=== PATIENT | male | born 1950 | race Hispanic/Latino ===

== ENCOUNTER 2017-04-05 17:27 | Inpatient (IN) | payer OTHER, MEDICARE ==
[2017-04-05 18:36] LABS: VENOUS BLOOD GAS BASE EXCESS 3.2 mmol/L (0.0-2.0); VENOUS BLOOD GAS PCO2 42 mmHg (40-60); VENOUS BLOOD GAS PO2 26 mm/Hg (30-55); VENOUS BLOOD PH 7.43 (7.32-7.43)
[2017-04-05 18:43] LABS: BASO # 0.1 K/uL (0.0-0.2); BASO % 0.6 % (0.0-2.0); EOS # 0.2 K/uL (0.0-0.7); EOS % 1.1 % (0.0-4.0); LYMPH # 1.9 K/uL (1.0-4.3); LYMPH % 9.7 % (20.0-40.0); MEAN CELL VOLUME 85.3 fl (80.0-94.0); MEAN CORPUSCULAR HEMOGLOBIN 27.1 pg (27.0-31.0); MEAN CORPUSCULAR HGB CONC 31.8 g/dL (33.0-37.0); MEAN PLATELET VOLUME 8.6 fl (7.2-11.7); MONO # 1.3 K/uL (0.0-0.8); MONO % 6.5 % (0.0-10.0); NEUT # 15.7 K/uL (1.8-7.0); NEUT % 82.1 % (50.0-75.0); NRBC % 0.1 % (0.0-0.0); PLATELET COUNT 319 K/uL (130-400); RBC 4.78 Mil/uL (4.40-5.90); RED CELL DISTRIBUTION WIDTH 14.9 % (11.5-14.5); WHITE BLOOD COUNT 19.2 K/uL (4.8-10.8)
[2017-04-05 18:48] LABS: ALB/GLOB RATIO 1.1 (1.0-2.1); ALBUMIN 4.2 g/dL (3.5-5.0); ALT/SGPT 74 U/L (21-72); AST/SGOT 85 U/L (17-59); BLOOD UREA NITROGEN 14 mg/dl (9-20); CALCIUM 9.5 mg/dL (8.4-10.2); GFR AFRICAN-AMERICAN > 60; GFR NON-AFRICAN AMERICAN > 60; LIPASE 86 U/L (23-300); MAGNESIUM 1.9 MG/DL (1.6-2.3)
--- NOTE | 2017-04-05 18:51 | ED PDOC ---
HPI: Male Pain Time Seen by Provider: 04/05/17 17:56 Chief Complaint (Nursing): Male Genitourinary Chief Complaint (Provider): Hematuria History Per: Patient History/Exam Limitations: no limitations Onset/Duration Of Symptoms: Hrs (x3) Current Symptoms Are (Timing): Still Present Quality Of Discomfort: Pressure Additional Complaint(s): 67 year old male presents to the ED complaining of hematuria since 4pm today. No clots noted. Denies associated dysuria, frequency, testicular/scrotal pain, or back pain. He reports left abdominal "pressure", but not outright pain. Patient had 1 episode of vomiting just prior to arrival but otherwise he denies any nausea, vomiting, diarrhea, or constipation. Reports a history of kidney stones in his twenties. Denies any recent trauma/fall or increased exercise. PMD: Dr. Sherman Past Medical History Reviewed: Historical Data, Nursing Documentation, Vital Signs Vital Signs: Last Vital Signs Temp 101.6 F H 04/05/17 17:37 Pulse 111 H 04/05/17 18:04 Resp 16 04/05/17 18:04 BP 166/107 H 04/05/17 18:04 Pulse Ox 99 04/05/17 18:04 - Medical History PMH: Diabetes, HTN, Hypercholesterolemia Denies: Chronic Kidney Disease - Surgical History Other surgeries: Lipoma resection on his back - Family History Family History: States: Diabetes, Hypertension - Social History Current smoker - smoking cessation education provided: No Alcohol: None Drugs: Denies - Immunization History Hx Influenza Vaccination: Yes - Home Medications Home Medications: Ambulatory Orders Medication Instructions Recorded Metoprolol Succinate [Toprol XL] 50 mg PO DAILY 04/05/17 Multivit-Min/FA/Vit K/Lycopene 1 tab PO DAILY 04/05/17 [One-A-Day Men's 50 Plus Tablet] Sitagliptin Phos/Metformin HCl 1 tab PO BID 04/05/17 [Janumet 50-1,000 mg Tablet] - Allergies Allergies/Adverse Reactions: Allergies Allergy/AdvReac Type Severity Reaction Status Date / Time No Known Allergies Allergy Verified 04/05/17 17:41 Review of Systems ROS Statement: Except As Marked, All Systems Reviewed And Found Negative (as per HPI otherwise negative) Gastrointestinal: Positive for: Vomiting (just 1 episode [employer]), Abdominal Pain ( pressure). Negative for: Nausea, Diarrhea, Constipation Genitourinary Male: Positive for: Hematuria. Negative for: Dysuria, Frequency, Scrotal Pain Musculoskeletal: Negative for: Back Pain Physical Exam - Reviewed Nursing Documentation Reviewed: Yes Vital Signs Reviewed: Yes - Laboratory Results Result Diagrams: 04/05/17 18:26 04/05/17 18:26 - ECG O2 Sat by Pulse Oximetry: 99 (RA) Pulse Ox Interpretation: Normal Medical Decision Making Medical Decision Making: Initial Impression: Hematuria, Abdominal Pain Differential includes: Cystitis, Renal colic, Pyelonephritis, Diverticulitis, and Coagulopathy Time: 18:00 Initial Plan: * Blood type and screen * VBG * EKG * CMP * Lipase * Magnesium * Phosphorous * CBC w/ differential * PTT * Prothrombin time * Urine dipstick * Urinalysis * Urine culture * Blood culture * Influenza A B * Chest x-ray * Tylenol 975 mg PO * Pending CT Abd & Pelvis w/o contrast * Reassessment Patient Name: EDWIGE PONCE (Age): 1950 67 Gender: M Date of Exam: 04/05/2017 Referring Physician: Tamara Cohen # of Images: [id number] Ordered As: CT ABD PELVIS W O PO OR IV CONT Page 1 of 2 EXAM: CT Abdomen and Pelvis Without Intravenous Contrast CLINICAL HISTORY: The patient is a 67 years male; Signs and symptoms; Abdominal tenderness; Patient HX: 67 years old patient present to ed complaining of hematuria since 4 pm he report also left abdominal pressure; Additional info: Left abd pressure and hematuria 04/05/2017 6:38 PM TECHNIQUE: Axial computed tomography images of the abdomen and pelvis without intravenous contrast. All CT scans at this facility use one or more dose reduction techniques, viz.: automated exposure control; ma/kV adjustment per patient size (including targeted exams where dose is matched to indication; i.e. head); or iterative reconstruction technique. Coronal and sagittal reformatted images were created and reviewed. COMPARISON: No relevant prior studies available. FINDINGS: Limitations: Lack of intravenous contrast limits evaluation for pathology. Lower thorax: Small hiatal hernia. ABDOMEN: Liver: Unremarkable. Gallbladder and bile ducts: Unremarkable. No calcified stones. No ductal dilation. Pancreas: Unremarkable. No ductal dilation. Spleen: Unremarkable. No splenomegaly. Adrenals: 1.4 cm nodule abutting/arising from the left adrenal. Kidneys and ureters: 18 x 9.6 cm exophytic heterogeneous partially hyperdense lesion is seen arising from the left kidney. Hyperdensity noted in the left renal collecting system. Right kidney is normal in size. Punctate right nephrolithiasis. There is no right hydronephrosis. Stomach and bowel: Unremarkable. No dilated bowel loops. Appendix: No findings to suggest acute appendicitis. PELVIS: Bladder: Partially contracted Reproductive: Unremarkable as visualized. ABDOMEN and PELVIS: Intraperitoneal space: Unremarkable. No free air. No significant fluid collection. Bones/joints spondylosis Soft tissues: Unremarkable. Vasculature: See above. Lymph nodes: Multiple left periaortic and aortocaval lymph nodes are noted. The largest: Limited lymphadenopathy the left periaortic region measures 4.6 x 1 cm on the coronal images. Other findings: Spondylosis IMPRESSION: 1. Lack of intravenous contrast limits evaluation for pathology. 2. 18 x 9.6 cm exophytic heterogeneous partially hyperdense lesion is seen arising from the left kidney. This is concerning for malignancy with foci of hemorrhage in the appropriate clinical setting. Hyperdensity noted in the left renal collecting system, likely hemorrhagic content. 3. Punctate right nephrolithiasis. There is no right hydronephrosis. 4. 1.4 cm nodule abutting/arising from the left adrenal. 5. Multiple retroperitoneal lymph nodes as described.. Thank you for allowing us to participate in the care of your patient. Dictated and Authenticated by: Tri Montero MD 04/05/2017 7:30 PM Eastern Time ([place] & [place]) Spoke to patient's PMD Dr. Sherman, who admits to the hospitalist. 20:[address] Carrion, hospitalist on-call, who accepts patient. Also spoke to urologist, Dr. Pabon. Patient is to be admitted inpatient for hemorrhagic left renal mass and febrile illness. Will have cardiology and urology consults. Scribe Attestation: Documented by Carolyne Larsen, acting as a scribe for Tamara Cohen MD Provider Scribe Attestation: All medical record entries made by the Scribe were at my direction and personally dictated by me. I have reviewed the chart and agree that the record accurately reflects my personal performance of the history, physical exam, medical decision making, and the department course for this patient. I have also personally directed, reviewed, and agree with the discharge instructions and disposition. Disposition - Patient ED Disposition Is Patient to be Admitted: Yes Counseled Patient/Family Regarding: Studies Performed, Diagnosis - Disposition Disposition Time: 20:16 - Pt Status Changed To: Hospital Disposition Of: Inpatient - Admit Certification Admit to Inpatient:: After my assessment, the patient will require hospitalization for at least two midnights. This is because of the severity of symptoms shown, intensity of services needed, and/or the medical risk in this patient being treated as an outpatient.
[2017-04-05 19:07] LABS: PARTIAL THROMBOPLASTIN TIME 30.5 Seconds (25.6-37.1); PROTHROMBIN TIME 11.5 Seconds (9.8-13.1)
[2017-04-05 19:18] LABS: URINE BACTERIA RARE (<OCC); URINE BILIRUBIN NEGATIVE (NEGATIVE); URINE BLOOD LARGE (NEGATIVE); URINE CLARITY CLOUDY (Clear); URINE COLOR YELLOW (YELLOW); URINE GLUCOSE (UA) NEG (Normal); URINE LEUKOCYTE ESTERASE NEG Leu/uL (Negative); URINE NITRATE NEGATIVE (NEGATIVE); URINE PROTEIN 100 mg/dL (NEGATIVE); URINE UROBILINOGEN 0.2-1.0 mg/dL (0.2-1.0)
[2017-04-05] MEDS ORDERED: cefTRIAXone (Rocephin) 1 gm Inj ONE (20:17)
[2017-04-05 21:08] LABS: VENOUS BLOOD GAS BASE EXCESS 3.1 mmol/L (0.0-2.0); VENOUS BLOOD GAS PCO2 30 mmHg (40-60); VENOUS BLOOD GAS PO2 78 mm/Hg (30-55); VENOUS BLOOD PH 7.53 (7.32-7.43)
[2017-04-05 21:18] LABS: BANDS 3 % (0-2); BASOPHIL 1 % (0-2); EOSINOPHIL 1 % (0-7); HYPOCHROMIC SLIGHT; LYMPHOCYTE 12 % (20-50); MONOCYTE 8 % (0-10); NEUTROPHIL 75 % (42-75); PLATELET ESTIMATE NORMAL (NORMAL); TOTAL CELLS COUNTED 100
--- NOTE | 2017-04-05 22:13 | CP.PCM.HP ---
History of Present Illness - History of Present Illness History of Present Illness: This is a 67 year old male with past medical history significant for Type 2 diabetes mellitus, hypertension, and hyperlipidemia, obesity, who presents to the ED with the complaint of hematuria today since this morning, x 4 episodes. The hematuria is without clots and painless. He is also complaining of some left sided abdominal pressure but denies pain. Denies nausea, vomiting, diarrhea , or constipation. The patient states that he voided this evening and the urine was clear; however due to the earlier hematuria he decided to come to the ED. In the ED, the patient was found to have temp of 101.6 and tachycardic. However he denies feeling feverish or chills. CT scan abdomen and pelvis reveals a large 18 x 9.6 cm exophytic heterogeneous partially hyperdense lesion is seen arising from the left kidney. This is concerning for malignancy with foci of hemorrhage in the appropriate clinical setting. Hyperdensity noted in the left renal collecting system, likely hemorrhagic content. Urinarlysis shows no overt UTI but does show large amount of blood. Dr. Pabon was called by the ED for urology consultation and recommended Rocephin which was given. He will see the patient in the morning for further workup. Patient is hemodynamically stable for telemetry floor. Present on Admission - Present on Admission Any Indicators Present on Admission: No Review of Systems - Review of Systems Review of Systems: a 12 point review of systems was conducted and found to be negative other than what was mentioned in the HPI. Past Patient History - Infectious Disease Hx of Infectious Diseases: None - Past Medical History & Family History Pertinent Family History: Mother from uterine cancer. Father from heart failure complications - Past Social History Alcohol: None Drugs: Denies - CARDIAC Hx Hypercholesterolemia: Yes Hx Hypertension: Yes - PULMONARY Hx Respiratory Disorders: No - NEUROLOGICAL Hx Neurological Disorder: No - HEENT Hx HEENT Problems: No - RENAL Hx Chronic Kidney Disease: No - ENDOCRINE/METABOLIC Hx Endocrine Disorders: Yes Hx Diabetes Mellitus Type 2: Yes - HEMATOLOGICAL/ONCOLOGICAL Hx Blood Disorders: No - INTEGUMENTARY Hx Dermatological Problems: No - MUSCULOSKELETAL/RHEUMATOLOGICAL Hx Musculoskeletal Disorders: No - GASTROINTESTINAL Hx Gastrointestinal Disorders: No - GENITOURINARY/GYNECOLOGICAL Hx Genitourinary Disorders: No - PSYCHIATRIC Hx Psychophysiologic Disorder: No Hx Substance Use: No - SURGICAL HISTORY Hx Surgeries: No - ANESTHESIA Hx Anesthesia: No Meds Allergies/Adverse Reactions: Allergies Allergy/AdvReac Type Severity Reaction Status Date / Time No Known Allergies Allergy Verified 04/05/17 17:41 Physical Exam - Additional Findings Additional findings: Physical exam: Constitutional- cooperative, awake, alert Head- NCAT, PERRL Eye- PERRL, EOMI ENT- normal exam, MMM. Neck- normal inspection, supple, no JVD Respiratory- CTAB, no wheezes rales rhonchi Cardiovascular- tachycardic, regular rhythm, +S1, +S2 no MRG GI/Abdominal- normal bowel sounds, soft, no mass, no hsm Skin- warm, dry Extremities Exam- normal capillary refill, normal inspection Neurological Exam- alert, awake, oriented Psych- normal mood, normal affect Results - Vital Signs Recent Vital Signs: Last Vital Signs Temp 98.1 F 04/05/17 21:27 Pulse 116 H 04/05/17 21:27 Resp 18 04/05/17 21:27 BP 140/81 04/05/17 21:27 Pulse Ox 97 04/05/17 21:27 - Labs Result Diagrams: 04/05/17 18:26 04/05/17 18:26 Labs: Laboratory Results - last 24 hr 04/05/17 04/05/17 04/05/17 18:00 18:24 18:26 WBC 19.2 H RBC 4.78 Hgb 13.0 Hct 40.8 MCV 85.3 MCH 27.1 MCHC 31.8 L RDW 14.9 H Plt Count 319 MPV 8.6 Neut % (Auto) 82.1 H Lymph % (Auto) 9.7 L Ashley % (Auto) 6.5 Eos % (Auto) 1.1 Baso % (Auto) 0.6 Neut # (Auto) 15.7 H Lymph # (Auto) 1.9 Ashley # (Auto) 1.3 H Eos # (Auto) 0.2 Baso # (Auto) 0.1 Neutrophils % (Manual) 75 Band Neutrophils % 3 H Lymphocytes % (Manual) 12 L Monocytes % (Manual) 8 Eosinophils % (Manual) 1 Basophils % (Manual) 1 Platelet Estimate Normal Hypochromasia (manual) Slight PT INR APTT pO2 26 L VBG pH 7.43 VBG pCO2 42 VBG HCO3 26.1 VBG Total CO2 29.2 H VBG O2 Sat (Calc) 59.6 VBG Base Excess 3.2 H VBG Potassium 4.6 Sodium 138.0 Chloride 101.0 Glucose 143 H Lactate 1.6 FiO2 21.0 Potassium Carbon Dioxide Anion Gap BUN Creatinine Est GFR ( Amer) Est GFR (Non-Af Amer) Random Glucose Calcium Phosphorus Magnesium Total Bilirubin AST ALT Alkaline Phosphatase Total Protein Albumin Globulin Albumin/Globulin Ratio Lipase Venous Blood Potassium 4.6 Urine Color Urine Clarity Urine pH Ur Specific Coyle Urine Protein Urine Glucose (UA) Urine Ketones Urine Blood Urine Nitrate Urine Bilirubin Urine Urobilinogen Ur Leukocyte Esterase Urine RBC (Auto) Urine Microscopic WBC Urine Bacteria Influenza Typ A,B (EIA) Blood Type O POSITIVE Antibody Screen Negative BBK History Checked No verified bt 04/05/17 04/05/17 04/05/17 18:26 18:26 18:26 WBC RBC Hgb Hct MCV MCH MCHC RDW Plt Count MPV Neut % (Auto) Lymph % (Auto) Ashley % (Auto) Eos % (Auto) Baso % (Auto) Neut # (Auto) Lymph # (Auto) Ashley # (Auto) Eos # (Auto) Baso # (Auto) Neutrophils % (Manual) Band Neutrophils % Lymphocytes % (Manual) Monocytes % (Manual) Eosinophils % (Manual) Basophils % (Manual) Platelet Estimate Hypochromasia (manual) PT 11.5 INR 1.0 APTT 30.5 pO2 VBG pH VBG pCO2 VBG HCO3 VBG Total CO2 VBG O2 Sat (Calc) VBG Base Excess VBG Potassium Sodium 139 Chloride 101 Glucose Lactate FiO2 Potassium 4.3 Carbon Dioxide 28 Anion Gap 14 BUN 14 Creatinine 1.2 Est GFR ( Amer) > 60 Est GFR (Non-Af Amer) > 60 Random Glucose 141 H Calcium 9.5 Phosphorus 3.3 Magnesium 1.9 Total Bilirubin 1.1 AST 85 H ALT 74 H Alkaline Phosphatase 126 Total Protein 8.1 Albumin 4.2 Globulin 3.9 Albumin/Globulin Ratio 1.1 Lipase 86 Venous Blood Potassium Urine Color Yellow Urine Clarity Cloudy Urine pH 6.0 Ur Specific Coyle 1.020 Urine Protein 100 Urine Glucose (UA) Neg Urine Ketones Negative Urine Blood Large Urine Nitrate Negative Urine Bilirubin Negative Urine Urobilinogen 0.2-1.0 Ur Leukocyte Esterase Neg Urine RBC (Auto) 47 H Urine Microscopic WBC 3 Urine Bacteria Rare Influenza Typ A,B (EIA) Blood Type Antibody Screen BBK History Checked 04/05/17 04/05/17 18:49 21:00 WBC RBC Hgb Hct MCV MCH MCHC RDW Plt Count MPV Neut % (Auto) Lymph % (Auto) Ashley % (Auto) Eos % (Auto) Baso % (Auto) Neut # (Auto) Lymph # (Auto) Ashley # (Auto) Eos # (Auto) Baso # (Auto) Neutrophils % (Manual) Band Neutrophils % Lymphocytes % (Manual) Monocytes % (Manual) Eosinophils % (Manual) Basophils % (Manual) Platelet Estimate Hypochromasia (manual) PT INR APTT pO2 78 H VBG pH 7.53 H VBG pCO2 30 L VBG HCO3 27.3 VBG Total CO2 26.0 VBG O2 Sat (Calc) 100.1 H VBG Base Excess 3.1 H VBG Potassium 4.1 Sodium 135.0 Chloride 103.0 Glucose 174 H Lactate 1.6 FiO2 21.0 Potassium Carbon Dioxide Anion Gap BUN Creatinine Est GFR ( Amer) Est GFR (Non-Af Amer) Random Glucose Calcium Phosphorus Magnesium Total Bilirubin AST ALT Alkaline Phosphatase Total Protein Albumin Globulin Albumin/Globulin Ratio Lipase Venous Blood Potassium 4.1 Urine Color Urine Clarity Urine pH Ur Specific Coyle Urine Protein Urine Glucose (UA) Urine Ketones Urine Blood Urine Nitrate Urine Bilirubin Urine Urobilinogen Ur Leukocyte Esterase Urine RBC (Auto) Urine Microscopic WBC Urine Bacteria Influenza Typ A,B (EIA) Negative for flu a/b Blood Type Antibody Screen BBK History Checked Assessment & Plan - Assessment and Plan (Free Text) Plan: ASSESSMENT 1) Exophytic hyperdense mass arising from the left kidney, concerning for malignancy, with hemorrhage 2) Fever with leukocytosis, with likely genitourinary infection 3) Hypertension 4) Hypercholesterolemia 5) DM type 2 PLAN - Admit to telemetry floor - Consultation with Dr. Pabon and Dr. Sherman - Normal saline at 100 cc/hour - Monitor vitals q6h - Repeat labs in AM - Tylenol PRN for fever - Supportive care - continue Rocephin 1 gram IVPB daily as per Dr. Pabon - Start regular insulin sliding scale for DM coverage, hold metformin - DVT prophylaxis with SCDs, no heparin due to bleeding
[2017-04-05] MEDS: Insulin Regular 100 units/ml SC SCH (22:54)
[2017-04-05] MEDS: Sodium Chloride 0.9% 1,000 ML IV SCH (23:09)
[2017-04-06 06:47] LABS: HEMOGLOBIN 13.5 g/dL (12.0-18.0); MEAN CELL VOLUME 84.8 fl (80.0-94.0); MEAN CORPUSCULAR HEMOGLOBIN 27.7 pg (27.0-31.0); MEAN CORPUSCULAR HGB CONC 32.7 g/dL (33.0-37.0); RBC 4.85 Mil/uL (4.40-5.90); WHITE BLOOD COUNT 23.4 K/uL (4.8-10.8)
[2017-04-06 06:52] LABS: BLOOD UREA NITROGEN 13 mg/dl (9-20); CALCIUM 9.2 mg/dL (8.4-10.2); GFR AFRICAN-AMERICAN > 60; GFR NON-AFRICAN AMERICAN > 60
--- NOTE | 2017-04-06 08:19 | CARD ---
APPROVED REPORT EKG Measurement Heart [id number] <Conclusion> Sinus tachycardia Possible Left atrial enlargement Borderline ECG
[2017-04-06] MEDS: Metoprolol Succinate 50 mg XL Tab PO SCH (08:56)
[2017-04-06] MEDS: Multivitamin With Minerals Tab PO SCH (08:56)
[2017-04-06] MEDS ORDERED: [UNRECOGNIZED DRUG - OTHER] PO SCH (09:00)
[2017-04-06] MEDS ORDERED: Pneumococcal 23-Valent Vaccine IM ONE (09:00)
[2017-04-06] MEDS ORDERED: LYCOPENE PO SCH (09:00)
[2017-04-06] MEDS ORDERED: MULTIVIT MIN PO SCH (09:00)
[2017-04-06] MEDS ORDERED: VIT K PO SCH (09:00)
[2017-04-06] MEDS: Insulin Regular 100 units/ml SC SCH ×3 (09:04→18:34)
[2017-04-06] MEDS: Sodium Chloride 0.9% 1,000 ML IV SCH ×2 (09:07→18:34)
--- NOTE | 2017-04-06 09:24 | CT ---
PROCEDURE: CT Abdomen and Pelvis without intravenous contrast HISTORY: LEFT abd pressure and hematuria COMPARISON: None. TECHNIQUE: Technique. Contrast Dose: None Radiation dose: Total exam DLP = 980 mGy-cm. This CT exam was performed using one or more of the following dose reduction techniques: Automated exposure control, adjustment of the mA and/or kV according to patient size, and/or use of iterative reconstruction technique. FINDINGS: LOWER THORAX: Unremarkable. Hiatal hernia suggested LIVER: Unremarkable. No gross lesion or ductal dilatation. GALLBLADDER AND BILE DUCTS: Tiny gallstones cannot be excluded ; correlate with ultrasound PANCREAS: Unremarkable. No gross lesion or ductal dilatation. SPLEEN: Unremarkable. ADRENALS: 1.4 cm left adrenal mass -metastatic lesion is a consideration given the regional left renal mass suspicious for malignancy KIDNEYS AND URETERS: Large 18 x 10 cm heterogeneous left renal mass exophytic from the lateral left kidney separation between it and the left kidney not possible. Hyperdensity within the left renal collecting system probably hemorrhagic component left perirenal fat stranding left kidney is anteriorly positioned. Mild prominence of the left collecting system possible 1 mm/sub mm right renal calculus -no right hydronephrosis. No right or left hydroureter VASCULATURE: Limited evaluation without IV contrast. No aortic aneurysm. BOWEL: The large left exophytic renal mass displaces bowel loops. No obstruction. No gross mural thickening. APPENDIX: Unremarkable. Normal appendix. PERITONEUM: Unremarkable. No free fluid. No free air. LYMPH NODES: Retroperitoneal lymph nodes present -metastatic involvement needs to be considered BLADDER: Unremarkable. REPRODUCTIVE: Mild prostatic hypertrophy with calcifications BONES: No acute fracture. No lytic lesion appreciated OTHER FINDINGS: None. IMPRESSION: Large exophytic left renal mass suspicious for malignancy. Assessment for vascular patency/thrombi limited without IV contrast Left adrenal mass - metastatic involvement- diagnosis of exclusion Retroperitoneal lymph nodes -metastatic involvement needs to be considered Comments: Preliminary report per Vrad compatible with this report.
--- NOTE | 2017-04-06 10:30 | CP.PCM.PN ---
<Cesar Ortiz - Last Filed: 04/06/17 14:17> Subjective - Date & Time of Evaluation Date of Evaluation: 04/06/17 Time of Evaluation: 09:35 - Subjective Subjective: 67 y/o M evaluated and examined by bedside. Pt under evaluation of hematuria. Pt c/o left abdominal and L flank discomfort but not pain, very mild and non- radiating. Pt afebrile with NO acute events overnight. Pt also c/o persistent coughing for 2 months, productive at times with thin whitish sputum, is intermittent and can occur at any time of the day. Pt reports acid reflux intermittently. Pt denies dysuria, urinary frequency, penile pain or discharge. Objective - Vital Signs/Intake and Output Vital Signs (last 24 hours): Temp Pulse Resp BP Pulse Ox 99.5 F 105 H 20 149/89 96 04/06/17 08:35 04/06/17 08:56 04/06/17 08:35 04/06/17 08:56 04/06/17 08:35 - Medications Medications: Current Medications Acetaminophen (Tylenol 325mg Tab) 650 mg PO Q6 PRN PRN Reason: Fever >100.4 F Sodium Chloride (Sodium Chloride 0.9%) 1,000 mls @ 100 mls/hr IV .Q10H [facility] Stop: 04/06/17 21:37 Last Admin: 04/06/17 09:07 Dose: 100 mls/hr Ceftriaxone Sodium 1 gm/ (Sodium Chloride) 100 mls @ 100 mls/hr IVPB DAILY [facility] PRN Reason: Protocol Insulin Human Regular (Humulin R) 0 units SC ACCU-CHECK [facility] PRN Reason: Protocol Last Admin: 04/06/17 09:04 Dose: 2 u Metoprolol Succinate (Toprol Xl) 50 mg PO DAILY [facility] Last Admin: 04/06/17 08:56 Dose: 50 mg Multivitamins/Minerals (Therapeutic-M Tab) 1 tab PO DAILY [facility] Last Admin: 04/06/17 08:56 Dose: 1 tab Ondansetron HCl (Zofran Inj) 4 mg IVP Q6 PRN PRN Reason: Nausea/Vomiting Last Admin: 04/06/17 06:12 Dose: 4 mg - Labs Labs: 04/06/17 05:30 04/06/17 05:30 PT 11.5 Seconds (9.8-13.1) 18 18:26 INR 1.0 (0.9-1.2) 18 18:26 APTT 30.5 Seconds (25.6-37.1) 04/05/17 18:26 - Constitutional Appears: Well, No Acute Distress - Head Exam Head Exam: ATRAUMATIC, NORMAL INSPECTION - Eye Exam Eye Exam: EOMI, PERRL - ENT Exam ENT Exam: Normal Oropharynx - Neck Exam Neck Exam: Full ROM - Respiratory Exam Respiratory Exam: Clear to Ausculation Bilateral, NORMAL BREATHING PATTERN - Cardiovascular Exam Cardiovascular Exam: Tachycardia, +S1, +S2 Assessment and Plan - Assessment and Plan (Free Text) Assessment: 67 y/o M with a PMHx of HTN, HLD and DM2 admitted for evaluation of L renal mass. --CT scan abdomen and pelvis reveals a large 18 x 9.6 cm exophytic heterogeneous partially hyperdense lesion is seen arising from the left kidney. Plan 1. Exophytic hyperdense mass arising from the left kidney, concerning for malignancy, with hemorrhage - Consult to Urology, Dr Pabon. - Urine cytology - Ceftriaxone 1gr daily as per Dr Pabon. - F/U UCx and Blood Cx. 2. Fever and Leukocytosis. - Pressumed genitourinary infection. - 101.6 degF at ER. - Ceftriaxone 1gr daily - Acetaminophen PRN. - F/U UCx and Blood Cx. 3. Chronic Cough - CT of Abdomen/Pelvis suggest hiatal hernia - Will initiate Protonic daily. - D-dimer, US doppler of b/l Lower Extremity ordered. Considering CT Angiogram of chest. - HIV test. - Will start IV azithromycin. - Monitor cough progression. - CXR showed NO active pulmonary disease at ED last night. Will repeat CXR in the AM. 4. Hypertension - C/w Metoprolol succinate - Vitals Q6 5. Hypercholesterolemia -Will check Lipid panel in the AM 6. DM type 2 - Start regular insulin sliding scale for DM coverage, hold metformin due to CT with contrast. - Monitor serum glucose, Accucheck. - Consult to cardiology, Dr Yost 7. DVT prophylaxis - SCDs, - no heparin due to bleeding of urine source. <Ashley Hubbard - Last Filed: 04/06/17 14:27> Objective - Vital Signs/Intake and Output Vital Signs (last 24 hours): Temp Pulse Resp BP Pulse Ox 99.5 F 111 H 20 142/86 95 04/06/17 12:45 04/06/17 12:45 04/06/17 12:45 04/06/17 12:45 04/06/17 12:45 - Medications Medications: Current Medications Acetaminophen (Tylenol 325mg Tab) 650 mg PO Q6 PRN PRN Reason: Fever >100.4 F Sodium Chloride (Sodium Chloride 0.9%) 1,000 mls @ 100 mls/hr IV .Q10H [facility] Stop: 04/06/17 21:37 Last Admin: 04/06/17 09:07 Dose: 100 mls/hr Ceftriaxone Sodium 1 gm/ (Sodium Chloride) 100 mls @ 100 mls/hr IVPB DAILY [facility] PRN Reason: Protocol Last Admin: 04/06/17 11:29 Dose: 100 mls/hr Azithromycin 500 mg/ Sodium (Chloride) 250 mls @ 250 mls/hr IVPB DAILY [facility] PRN Reason: Protocol Insulin Human Regular (Humulin R) 0 units SC ACCU-CHECK [facility] PRN Reason: Protocol Last Admin: 04/06/17 12:25 Dose: 2 u Metoprolol Succinate (Toprol Xl) 50 mg PO DAILY [facility] Last Admin: 04/06/17 08:56 Dose: 50 mg Multivitamins/Minerals (Therapeutic-M Tab) 1 tab PO DAILY [facility] Last Admin: 04/06/17 08:56 Dose: 1 tab Ondansetron HCl (Zofran Inj) 4 mg IVP Q6 PRN PRN Reason: Nausea/Vomiting Last Admin: 04/06/17 12:24 Dose: 4 mg Pantoprazole Sodium (Protonix Ec Tab) 40 mg PO DAILY [facility] - Labs Labs: 04/06/17 05:30 04/06/17 05:30 PT 11.5 Seconds (9.8-13.1) 04/05/17 18:26 INR 1.0 (0.9-1.2) 04/05/17 18:26 APTT 30.5 Seconds (25.6-37.1) 04/05/17 18:26 Attending/Attestation - Attestation I have personally seen and examined this patient.: Yes I have fully participated in the care of the patient.: Yes I have reviewed all pertinent clinical information, including history, physical exam and plan: Yes Notes (Text): Renal Mass - further work up needed to determine Dx - may be hematoma/Hemorrhage however need to r/o malignancy yuridia as the mass is large and hyperdense, pt had wt loss, and retroperitoneal adenopathy - discussed case with Dr Pabon - Plan is to do Cystoscopy , he also recommended that we rpt Renal CT with contrast and check to see if there is a resolution of the mass then likely this is hemorrhage - Urine Cytology Cough - started 2 mos ago, some phlegm - empiric tx with IV abx to r/o infection - need also to r/o PE given pt is tachycardic ( though may be due to his fever) and also bec malignancy is a hypercoagulable state -DDimer, Doppler US of the LE , CTA Pulm
--- NOTE | 2017-04-06 12:38 | RAD ---
HISTORY: Sepsis Patient COMPARISON: No prior. FINDINGS: LUNGS: No active pulmonary disease. PLEURA: No significant pleural effusion identified, no pneumothorax apparent. CARDIOVASCULAR: Normal. OSSEOUS STRUCTURES: No significant abnormalities. VISUALIZED UPPER ABDOMEN: Normal. OTHER FINDINGS: None. IMPRESSION: No active disease.
--- NOTE | 2017-04-06 13:08 | CP.PCM.CON ---
History of Present Illness - History of Present Illness History of Present Illness: THE PATIENT IS A 67 YEAR OLD MALE WITH A HISTORY OF HYPERTENSION, HYPERLIPIDEMIA AND TYPE 2 DM. HE STATES THAT HE WAS FINE ON 04/04/17 BUT YESTERDAY WAS HAVING HEMATURIA AND HE CALLED ME AND I ADVISED HIM TO GO TO THE ER. IN THE ER THEY DID A HEMATURIA WORK-UP AND A CAT SCAN SHOWED AN 18 CM X 9.6 CM DENSITY IN THE LEFT KIDNEY SO HE WAS ADMITTED. HE DOES STATE THAT HE HAD DISCOMFORT ON HIS LEFT FLANK THAT FEELS LIKE A PRESSURE SENSATION. HE ALSO HAD A TEMP OF 101.6 AQND AN ELEVATED WBC. CARDIOLOGY WAS ASKED TO SEE HIM BECAUSE I TREAT HIM FOR HYPERTENSION AND HYPERLIPIDEMIA. HE DENIES CHEST PAIN OR SOB. Past Patient History - Infectious Disease Hx of Infectious Diseases: None - Past Medical History & Family History Past Medical History?: Yes - Past Social History Smoking Status: Never Smoked - CARDIAC Hx Cardiac Disorders: Yes Hx Hypercholesterolemia: Yes Hx Hypertension: Yes - PULMONARY Hx Respiratory Disorders: No - NEUROLOGICAL Hx Neurological Disorder: No - HEENT Hx HEENT Problems: No - RENAL Hx Chronic Kidney Disease: No - ENDOCRINE/METABOLIC Hx Endocrine Disorders: Yes Hx Diabetes Mellitus Type 2: Yes - HEMATOLOGICAL/ONCOLOGICAL Hx Blood Disorders: No - INTEGUMENTARY Hx Dermatological Problems: No - MUSCULOSKELETAL/RHEUMATOLOGICAL Hx Musculoskeletal Disorders: No Hx Falls: No - GASTROINTESTINAL Hx Gastrointestinal Disorders: No - GENITOURINARY/GYNECOLOGICAL Hx Genitourinary Disorders: No - PSYCHIATRIC Hx Psychophysiologic Disorder: No Hx Substance Use: No - SURGICAL HISTORY Hx Surgeries: Yes Other/Comment: Lipoma resection (back) - ANESTHESIA Hx Anesthesia: Yes Hx Anesthesia Reactions: No Hx Malignant Hyperthermia: No Meds Allergies/Adverse Reactions: Allergies Allergy/AdvReac Type Severity Reaction Status Date / Time No Known Allergies Allergy Verified 04/05/17 17:41 - Medications Medications: Current Medications Acetaminophen (Tylenol 325mg Tab) 650 mg PO Q6 PRN PRN Reason: Fever >100.4 F Sodium Chloride (Sodium Chloride 0.9%) 1,000 mls @ 100 mls/hr IV .Q10H [facility] Stop: 04/06/17 21:37 Last Admin: 04/06/17 09:07 Dose: 100 mls/hr Ceftriaxone Sodium 1 gm/ (Sodium Chloride) 100 mls @ 100 mls/hr IVPB DAILY [facility] PRN Reason: Protocol Last Admin: 04/06/17 11:29 Dose: 100 mls/hr Insulin Human Regular (Humulin R) 0 units SC ACCU-CHECK [facility] PRN Reason: Protocol Last Admin: 04/06/17 12:25 Dose: 2 u Metoprolol Succinate (Toprol Xl) 50 mg PO DAILY [facility] Last Admin: 04/06/17 08:56 Dose: 50 mg Multivitamins/Minerals (Therapeutic-M Tab) 1 tab PO DAILY [facility] Last Admin: 04/06/17 08:56 Dose: 1 tab Ondansetron HCl (Zofran Inj) 4 mg IVP Q6 PRN PRN Reason: Nausea/Vomiting Last Admin: 04/06/17 12:24 Dose: 4 mg Physical Exam - Respiratory Exam Respiratory Exam: Clear to Auscultation Bilateral - Cardiovascular Exam Cardiovascular Exam: Tachycardia, REGULAR RHYTHM, +S1, +S2 - GI/Abdominal Exam Additional comments: LEFT FLANK TENDERNESS - Extremities Exam Extremities exam: Positive for: normal inspection - Additional Findings Additional findings: EKG ST, R 108 CXR NAD WBC 19K UA WITH MANY RBCS CT SCAN WITH LEFT KIDNEY DENSITY Results - Vital Signs Recent Vital Signs: Last Vital Signs Temp 99.5 F 04/06/17 12:45 Pulse 111 H 04/06/17 12:45 Resp 20 04/06/17 12:45 BP 142/86 04/06/17 12:45 Pulse Ox 95 04/06/17 12:45 - Labs Result Diagrams: 04/06/17 05:30 04/06/17 05:30 Labs: Laboratory Results - last 24 hr 04/05/17 04/05/17 04/05/17 18:00 18:24 18:26 WBC 19.2 H RBC 4.78 Hgb 13.0 Hct 40.8 MCV 85.3 MCH 27.1 MCHC 31.8 L RDW 14.9 H Plt Count 319 MPV 8.6 Neut % (Auto) 82.1 H Lymph % (Auto) 9.7 L [place] % (Auto) 6.5 Eos % (Auto) 1.1 Baso % (Auto) 0.6 Neut # (Auto) 15.7 H Lymph # (Auto) 1.9 [place] # (Auto) 1.3 H Eos # (Auto) 0.2 Baso # (Auto) 0.1 Neutrophils % (Manual) 75 Band Neutrophils % 3 H Lymphocytes % (Manual) 12 L Monocytes % (Manual) 8 Eosinophils % (Manual) 1 Basophils % (Manual) 1 Platelet Estimate Normal Hypochromasia (manual) Slight PT INR APTT pO2 26 L VBG pH 7.43 VBG pCO2 42 VBG HCO3 26.1 VBG Total CO2 29.2 H VBG O2 Sat (Calc) 59.6 VBG Base Excess 3.2 H VBG Potassium 4.6 Sodium 138.0 Chloride 101.0 Glucose 143 H Lactate 1.6 FiO2 21.0 Potassium Carbon Dioxide Anion Gap BUN Creatinine Est GFR ( Amer) Est GFR (Non-Af Amer) POC Glucose (mg/dL) Random Glucose Calcium Phosphorus Magnesium Total Bilirubin AST ALT Alkaline Phosphatase Total Protein Albumin Globulin Albumin/Globulin Ratio Lipase Venous Blood Potassium 4.6 Urine Color Urine Clarity Urine pH Ur Specific [place] Urine Protein Urine Glucose (UA) Urine Ketones Urine Blood Urine Nitrate Urine Bilirubin Urine Urobilinogen Ur Leukocyte Esterase Urine RBC (Auto) Urine Microscopic WBC Urine Bacteria Influenza Typ A,B (EIA) Blood Type O POSITIVE Antibody Screen Negative BBK History Checked No verified bt 04/05/17 04/05/17 04/05/17 18:26 18:26 18:26 WBC RBC Hgb Hct MCV MCH MCHC RDW Plt Count MPV Neut % (Auto) Lymph % (Auto) [place] % (Auto) Eos % (Auto) Baso % (Auto) Neut # (Auto) Lymph # (Auto) [place] # (Auto) Eos # (Auto) Baso # (Auto) Neutrophils % (Manual) Band Neutrophils % Lymphocytes % (Manual) Monocytes % (Manual) Eosinophils % (Manual) Basophils % (Manual) Platelet Estimate Hypochromasia (manual) PT 11.5 INR 1.0 APTT 30.5 pO2 VBG pH VBG pCO2 VBG HCO3 VBG Total CO2 VBG O2 Sat (Calc) VBG Base Excess VBG Potassium Sodium 139 Chloride 101 Glucose Lactate FiO2 Potassium 4.3 Carbon Dioxide 28 Anion Gap 14 BUN 14 Creatinine 1.2 Est GFR ( Amer) > 60 Est GFR (Non-Af Amer) > 60 POC Glucose (mg/dL) Random Glucose 141 H Calcium 9.5 Phosphorus 3.3 Magnesium 1.9 Total Bilirubin 1.1 AST 85 H ALT 74 H Alkaline Phosphatase 126 Total Protein 8.1 Albumin 4.2 Globulin 3.9 Albumin/Globulin Ratio 1.1 Lipase 86 Venous Blood Potassium Urine Color Yellow Urine Clarity Cloudy Urine pH 6.0 Ur Specific [place] 1.020 Urine Protein 100 Urine Glucose (UA) Neg Urine Ketones Negative Urine Blood Large Urine Nitrate Negative Urine Bilirubin Negative Urine Urobilinogen 0.2-1.0 Ur Leukocyte Esterase Neg Urine RBC (Auto) 47 H Urine Microscopic WBC 3 Urine Bacteria Rare Influenza Typ A,B (EIA) Blood Type Antibody Screen BBK History Checked 04/05/17 04/05/17 04/05/17 18:49 21:00 22:10 WBC RBC Hgb Hct MCV MCH MCHC RDW Plt Count MPV Neut % (Auto) Lymph % (Auto) [place] % (Auto) Eos % (Auto) Baso % (Auto) Neut # (Auto) Lymph # (Auto) [place] # (Auto) Eos # (Auto) Baso # (Auto) Neutrophils % (Manual) Band Neutrophils % Lymphocytes % (Manual) Monocytes % (Manual) Eosinophils % (Manual) Basophils % (Manual) Platelet Estimate Hypochromasia (manual) PT INR APTT pO2 78 H VBG pH 7.53 H VBG pCO2 30 L VBG HCO3 27.3 VBG Total CO2 26.0 VBG O2 Sat (Calc) 100.1 H VBG Base Excess 3.1 H VBG Potassium 4.1 Sodium 135.0 Chloride 103.0 Glucose 174 H Lactate 1.6 FiO2 21.0 Potassium Carbon Dioxide Anion Gap BUN Creatinine Est GFR ( Amer) Est GFR (Non-Af Amer) POC Glucose (mg/dL) 154 H Random Glucose Calcium Phosphorus Magnesium Total Bilirubin AST ALT Alkaline Phosphatase Total Protein Albumin Globulin Albumin/Globulin Ratio Lipase Venous Blood Potassium 4.1 Urine Color Urine Clarity Urine pH Ur Specific [place] Urine Protein Urine Glucose (UA) Urine Ketones Urine Blood Urine Nitrate Urine Bilirubin Urine Urobilinogen Ur Leukocyte Esterase Urine RBC (Auto) Urine Microscopic WBC Urine Bacteria Influenza Typ A,B (EIA) Negative for flu a/b Blood Type Antibody Screen BBK History Checked 04/06/17 04/06/17 04/06/17 05:15 05:30 05:30 WBC 23.4 H RBC 4.85 Hgb 13.5 Hct 41.1 MCV 84.8 MCH 27.7 MCHC 32.7 L RDW 15.0 H Plt Count 315 MPV Neut % (Auto) Lymph % (Auto) [place] % (Auto) Eos % (Auto) Baso % (Auto) Neut # (Auto) Lymph # (Auto) [place] # (Auto) Eos # (Auto) Baso # (Auto) Neutrophils % (Manual) Band Neutrophils % Lymphocytes % (Manual) Monocytes % (Manual) Eosinophils % (Manual) Basophils % (Manual) Platelet Estimate Hypochromasia (manual) PT INR APTT pO2 VBG pH VBG pCO2 VBG HCO3 VBG Total CO2 VBG O2 Sat (Calc) VBG Base Excess VBG Potassium Sodium 140 Chloride 102 Glucose Lactate FiO2 Potassium 4.2 Carbon Dioxide 25 Anion Gap 17 BUN 13 Creatinine 1.2 Est GFR ( Amer) > 60 Est GFR (Non-Af Amer) > 60 POC Glucose (mg/dL) 197 H Random Glucose 195 H Calcium 9.2 Phosphorus Magnesium Total Bilirubin AST ALT Alkaline Phosphatase Total Protein Albumin Globulin Albumin/Globulin Ratio Lipase Venous Blood Potassium Urine Color Urine Clarity Urine pH Ur Specific [place] Urine Protein Urine Glucose (UA) Urine Ketones Urine Blood Urine Nitrate Urine Bilirubin Urine Urobilinogen Ur Leukocyte Esterase Urine RBC (Auto) Urine Microscopic WBC Urine Bacteria Influenza Typ A,B (EIA) Blood Type Antibody Screen BBK History Checked 04/06/17 10:43 WBC RBC Hgb Hct MCV MCH MCHC RDW Plt Count MPV Neut % (Auto) Lymph % (Auto) [place] % (Auto) Eos % (Auto) Baso % (Auto) Neut # (Auto) Lymph # (Auto) [place] # (Auto) Eos # (Auto) Baso # (Auto) Neutrophils % (Manual) Band Neutrophils % Lymphocytes % (Manual) Monocytes % (Manual) Eosinophils % (Manual) Basophils % (Manual) Platelet Estimate Hypochromasia (manual) PT INR APTT pO2 VBG pH VBG pCO2 VBG HCO3 VBG Total CO2 VBG O2 Sat (Calc) VBG Base Excess VBG Potassium Sodium Chloride Glucose Lactate FiO2 Potassium Carbon Dioxide Anion Gap BUN Creatinine Est GFR ( Amer) Est GFR (Non-Af Amer) POC Glucose (mg/dL) 188 H Random Glucose Calcium Phosphorus Magnesium Total Bilirubin AST ALT Alkaline Phosphatase Total Protein Albumin Globulin Albumin/Globulin Ratio Lipase Venous Blood Potassium Urine Color Urine Clarity Urine pH Ur Specific [place] Urine Protein Urine Glucose (UA) Urine Ketones Urine Blood Urine Nitrate Urine Bilirubin Urine Urobilinogen Ur Leukocyte Esterase Urine RBC (Auto) Urine Microscopic WBC Urine Bacteria Influenza Typ A,B (EIA) Blood Type Antibody Screen BBK History Checked Assessment & Plan - Assessment and Plan (Free Text) Assessment: LEFT KIDNEY DENSITY AND HEMATURIA HYPERTENSION HYPERLIPIDEMIA POSSIBLE INFECTION Plan: CONTINUE METOPROLOL AND ANTIBIOTICS UROLOGY TO SEE
[2017-04-06] MEDS: Pantoprazole 40 mg EC Tab PO SCH (16:08)
[2017-04-06] MEDS: Azithromycin 500 MG in Sodium Chloride 0.9% 250 ML IVPB SCH (16:08)
--- NOTE | 2017-04-06 17:10 | US ---
PROCEDURE: Bilateral lower extremity venous duplex Doppler. HISTORY: r/o DVT COMPARISON: None available. TECHNIQUE: Bilateral common femoral, superficial femoral, popliteal and posterior tibial veins were evaluated. Flow was assessed with color Doppler, compressibility, assessment of phasic flow and augmentation response. FINDINGS: COMMON FEMORAL VEIN: Right CFV: Unremarkable. Left CFV: Unremarkable. SUPERFICIAL FEMORAL VEIN: Right SFV: Unremarkable. Left SFV: Unremarkable. POPLITEAL VEIN: Right Popliteal: Unremarkable. Left Popliteal: Unremarkable. POSTERIOR TIBIAL VEIN: Right PTV: Unremarkable. Left PTV: Unremarkable. OTHER FINDINGS: None. IMPRESSION: No evidence of deep venous thrombosis.
[2017-04-06] MEDS ORDERED: Iohexol 240 (50 ml) PO ONE (21:00)
[2017-04-06] MEDS ORDERED: Sodium Chloride 0.9% 50 ML IV ONE (23:09)
[2017-04-06] MEDS ORDERED: Iodixanol 320 MG/ML 100 ML BOTTLE IV ONE (23:09)
[2017-04-07] MEDS: Insulin Regular 100 units/ml SC SCH ×5 (00:27→23:00)
[2017-04-07 06:08] LABS: BASO % 0.2 % (0.0-2.0); EOS % 0.1 % (0.0-4.0); HEMOGLOBIN 12.2 g/dL (12.0-18.0); LYMPH # 1.4 K/uL (1.0-4.3); LYMPH % 5.9 % (20.0-40.0); MEAN CELL VOLUME 84.2 fl (80.0-94.0); MEAN CORPUSCULAR HEMOGLOBIN 27.3 pg (27.0-31.0); MEAN CORPUSCULAR HGB CONC 32.4 g/dL (33.0-37.0); MONO # 2.6 K/uL (0.0-0.8); MONO % 10.5 % (0.0-10.0); NEUT # 20.4 K/uL (1.8-7.0); NEUT % 83.3 % (50.0-75.0); RBC 4.49 Mil/uL (4.40-5.90); RED CELL DISTRIBUTION WIDTH 15.1 % (11.5-14.5); WHITE BLOOD COUNT 24.5 K/uL (4.8-10.8)
[2017-04-07 07:47] LABS: ALB/GLOB RATIO 0.9 (1.0-2.1); ALBUMIN 3.5 g/dL (3.5-5.0); ALT/SGPT 69 U/L (21-72); AST/SGOT 71 U/L (17-59); BLOOD UREA NITROGEN 16 mg/dl (9-20); GFR AFRICAN-AMERICAN > 60; GFR NON-AFRICAN AMERICAN 51
[2017-04-07] MEDS: Azithromycin 500 MG in Sodium Chloride 0.9% 250 ML IVPB SCH (08:46)
[2017-04-07] MEDS: Metoprolol Succinate 50 mg XL Tab PO SCH (08:52)
[2017-04-07] MEDS: Pantoprazole 40 mg EC Tab PO SCH (08:52)
[2017-04-07] MEDS: Multivitamin With Minerals Tab PO SCH (08:52)
--- NOTE | 2017-04-07 09:44 | CP.PCM.PN ---
Objective - Vital Signs/Intake and Output Vital Signs (last 24 hours): Temp Pulse Resp BP Pulse Ox 99 F 120 H 20 132/85 96 04/07/17 08:52 04/07/17 08:52 04/07/17 08:52 04/07/17 08:52 04/07/17 08:52 - Medications Medications: Current Medications Acetaminophen (Tylenol 325mg Tab) 650 mg PO Q6 PRN PRN Reason: Fever >100.4 F Ceftriaxone Sodium 1 gm/ (Sodium Chloride) 100 mls @ 100 mls/hr IVPB DAILY [facility] PRN Reason: Protocol Last Admin: 04/07/17 08:46 Dose: 100 mls/hr Azithromycin 500 mg/ Sodium (Chloride) 250 mls @ 250 mls/hr IVPB DAILY [facility] PRN Reason: Protocol Last Admin: 04/07/17 08:46 Dose: 250 mls/hr Insulin Human Regular (Humulin R) 0 units SC ACCU-CHECK [facility] PRN Reason: Protocol Last Admin: 04/07/17 06:53 Dose: Not Given Metoprolol Succinate (Toprol Xl) 50 mg PO DAILY [facility] Last Admin: 04/07/17 08:52 Dose: 50 mg Multivitamins/Minerals (Therapeutic-M Tab) 1 tab PO DAILY [facility] Last Admin: 04/07/17 08:52 Dose: 1 tab Ondansetron HCl (Zofran Inj) 4 mg IVP Q6 PRN PRN Reason: Nausea/Vomiting Last Admin: 04/06/17 12:24 Dose: 4 mg Pantoprazole Sodium (Protonix Ec Tab) 40 mg PO DAILY [facility] Last Admin: 04/07/17 08:52 Dose: 40 mg Temazepam (Restoril) 15 mg PO HS PRN PRN Reason: Insomnia Last Admin: 04/07/17 00:28 Dose: 15 mg - Labs Labs: 04/07/17 05:00 04/07/17 05:53 PT 11.5 Seconds (9.8-13.1) 04/05/17 18:26 INR 1.0 (0.9-1.2) 04/05/17 18:26 APTT 30.5 Seconds (25.6-37.1) 04/05/17 18:26
--- NOTE | 2017-04-07 09:51 | CP.PCM.PN ---
Subjective - Date & Time of Evaluation Date of Evaluation: 04/07/17 Time of Evaluation: 09:30 - Subjective Subjective: NO NEW COMPLAINTS Objective - Vital Signs/Intake and Output Vital Signs (last 24 hours): Temp Pulse Resp BP Pulse Ox 99 F 120 H 20 132/85 96 04/07/17 08:52 04/07/17 08:52 04/07/17 08:52 04/07/17 08:52 04/07/17 08:52 - Medications Medications: Current Medications Acetaminophen (Tylenol 325mg Tab) 650 mg PO Q6 PRN PRN Reason: Fever >100.4 F Ceftriaxone Sodium 1 gm/ (Sodium Chloride) 100 mls @ 100 mls/hr IVPB DAILY [facility] PRN Reason: Protocol Last Admin: 04/07/17 08:46 Dose: 100 mls/hr Azithromycin 500 mg/ Sodium (Chloride) 250 mls @ 250 mls/hr IVPB DAILY [facility] PRN Reason: Protocol Last Admin: 04/07/17 08:46 Dose: 250 mls/hr Insulin Human Regular (Humulin R) 0 units SC ACCU-CHECK [facility] PRN Reason: Protocol Last Admin: 04/07/17 06:53 Dose: Not Given Metoprolol Succinate (Toprol Xl) 50 mg PO DAILY [facility] Last Admin: 04/07/17 08:52 Dose: 50 mg Multivitamins/Minerals (Therapeutic-M Tab) 1 tab PO DAILY [facility] Last Admin: 04/07/17 08:52 Dose: 1 tab Ondansetron HCl (Zofran Inj) 4 mg IVP Q6 PRN PRN Reason: Nausea/Vomiting Last Admin: 04/06/17 12:24 Dose: 4 mg Pantoprazole Sodium (Protonix Ec Tab) 40 mg PO DAILY [facility] Last Admin: 04/07/17 08:52 Dose: 40 mg Temazepam (Restoril) 15 mg PO HS PRN PRN Reason: Insomnia Last Admin: 04/07/17 00:28 Dose: 15 mg - Labs Labs: 04/07/17 05:00 04/07/17 05:53 PT 11.5 Seconds (9.8-13.1) 04/05/17 18:26 INR 1.0 (0.9-1.2) 04/05/17 18:26 APTT 30.5 Seconds (25.6-37.1) 04/05/17 18:26 - Respiratory Exam Respiratory Exam: Clear to Ausculation Bilateral - Cardiovascular Exam Cardiovascular Exam: REGULAR RHYTHM, +S1, +S2 - Extremities Exam Extremities Exam: Normal Inspection - Additional Findings Additional findings: CT OF ABDOMEN WITH CONTRAST AND CHEST CT DONE-REPORT PENDING LE VENOUS DOPPLER DONE-NEGATIVE Assessment and Plan - Assessment and Plan (Free Text) Assessment: LEFT KIDNEY DENSITY WITH HEMATURIA HYPERTENSION Plan: PATIENT SEEN BY UROLOGY CYSTOSCOPY IN AM
--- NOTE | 2017-04-07 10:02 | CT ---
PROCEDURE: CT Chest with contrast (Pulmonary Angiogram) HISTORY: r/o PE , cough, tachycardia, hypercoag state COMPARISON: None available. TECHNIQUE: Axial computed tomography images were obtained of the chest in the pulmonary arterial phase of enhancement. Coronal and sagittal reformatted images were created and reviewed. Intravenous contrast dose: 95 mL Visipaque 320 Radiation dose: Total exam DLP = 1622.0 mGy-cm. This CT exam was performed using one or more of the following dose reduction techniques: Automated exposure control, adjustment of the mA and/or kV according to patient size, and/or use of iterative reconstruction technique. FINDINGS: PULMONARY ARTERIES: Unremarkable. No pulmonary embolism. AORTA: No acute findings. Common origin of the brachiocephalic and left common carotid arteries. No thoracic aortic aneurysm. LUNGS: Dependent atelectasis. No nodule, mass or pulmonary consolidation. PLEURAL SPACES: Unremarkable. No effusion or pneumothorax. HEART: Unremarkable. No cardiomegaly. No significant pericardial effusion. LYMPH NODES: No lymphadenopathy. BONES, CHEST WALL: Unremarkable. No fracture or destructive lesion OTHER FINDINGS: Partially imaged large left renal mass. Partially imaged left adrenal mass. IMPRESSION: Unremarkable CT pulmonary angiogram. No pulmonary embolus. For intra-abdominal findings, please refer to report from dedicated CT scan of the abdomen pelvis.
--- NOTE | 2017-04-07 10:30 | CP.PCM.PN ---
Subjective - Date & Time of Evaluation Date of Evaluation: 04/07/17 Time of Evaluation: 09:50 - Subjective Subjective: 67 y/o M evaluated and examined by bedside. Pt reports feeling well, cough is still present during all day, Pt reports he had 2 episodes of hematuria last night but no blood in urine since this morning. Pt tolerating PO had a temperature of 100.1 degF at 10pm last night. Pt took Temazepam last night as sleeping aid. Pt reports sleeping better last night. Objective - Vital Signs/Intake and Output Vital Signs (last 24 hours): Temp Pulse Resp BP Pulse Ox 99 F 120 H 20 132/85 96 04/07/17 08:52 04/07/17 08:52 04/07/17 08:52 04/07/17 08:52 04/07/17 08:52 - Medications Medications: Current Medications Acetaminophen (Tylenol 325mg Tab) 650 mg PO Q6 PRN PRN Reason: Fever >100.4 F Ceftriaxone Sodium 1 gm/ (Sodium Chloride) 100 mls @ 100 mls/hr IVPB DAILY [facility] PRN Reason: Protocol Last Admin: 04/07/17 08:46 Dose: 100 mls/hr Azithromycin 500 mg/ Sodium (Chloride) 250 mls @ 250 mls/hr IVPB DAILY [facility] PRN Reason: Protocol Last Admin: 04/07/17 08:46 Dose: 250 mls/hr Insulin Human Regular (Humulin R) 0 units SC ACCU-CHECK [facility] PRN Reason: Protocol Last Admin: 04/07/17 06:53 Dose: Not Given Metoprolol Succinate (Toprol Xl) [address] [facility] Last Admin: 04/07/17 08:52 Dose: 50 mg Multivitamins/Minerals (Therapeutic-M Tab) [address] [facility] Last Admin: 04/07/17 08:52 Dose: 1 tab Ondansetron HCl (Zofran Inj) 4 mg IVP Q6 PRN PRN Reason: Nausea/Vomiting Last Admin: 04/06/17 12:24 Dose: 4 mg Pantoprazole Sodium (Protonix Ec Tab) [address] [facility] Last Admin: 04/07/17 08:52 Dose: 40 mg Temazepam (Restoril) 15 mg PO HS PRN PRN Reason: Insomnia Last Admin: 04/07/17 00:28 Dose: 15 mg - Labs Labs: 04/07/17 05:00 02/08/18 05:53 PT 11.5 Seconds (9.8-13.1) 04/05/17 18:26 INR 1.0 (0.9-1.2) 04/05/17 18:26 APTT 30.5 Seconds (25.6-37.1) 04/05/17 18:26 - Constitutional Appears: Well, No Acute Distress - Head Exam Head Exam: ATRAUMATIC, NORMAL INSPECTION - Eye Exam Eye Exam: EOMI, Normal appearance - ENT Exam ENT Exam: Mucous Membranes Moist - Neck Exam Neck Exam: Full ROM - Respiratory Exam Respiratory Exam: Clear to Ausculation Bilateral, NORMAL BREATHING PATTERN - Cardiovascular Exam Cardiovascular Exam: REGULAR RHYTHM, +S1, +S2 - GI/Abdominal Exam GI & Abdominal Exam: Soft, Normal Bowel Sounds. absent: Guarding, Rigid, Tenderness - Extremities Exam Extremities Exam: Full ROM. absent: Joint Swelling, Pedal Edema - Neurological Exam Neurological Exam: Alert, Awake, Oriented x3 Assessment and Plan - Assessment and Plan (Free Text) Assessment: 67 y/o M with a PMHx of HTN, HLD and DM2 admitted for evaluation of L renal mass. --On 04/05/17, CT scan abdomen and pelvis reveals a large 18 x 9.6 cm exophytic heterogeneous partially hyperdense lesion is seen arising from the left kidney. Plan 1. Exophytic hyperdense mass arising from the left kidney, concerning for malignancy, with hemorrhage - Renal cell carcinoma until proven otherwise, in need for L nephrectomy, pt has indicated that he desires to have any surgical procedure at [facility]. - Urology, Dr Pabon, on board. - Today, CT Abdomen and Pelvis with contrast showed heterogeneously enhancing large left renal mass measuring 17.2x12.7x19.6cm, patent L renal artery and vein , L adrenal mass and L para-aortic lyhmphadenopathy, L sided varicocele. - UCx showed NO growth-final report and Blood Cx showed NO growth in 24 hours. - Cytoscopy, as per Dr Pabon. - Considering stopping Ceftriaxone 1gr daily, as NO focus of infection found. - IR consulted for possible L renal mass biopsy. - F/U Urine cytology. 2. Fever and Leukocytosis. - Most probably reactive to malignancy, renal cell carcinoma until proven otherwise. - 101.6 degF at ER. - Considering stopping Ceftriaxone 1gr daily, as NO focus of infection found. - Acetaminophen PRN. - UCx showed NO growth-final report and Blood Cx showed NO growth in 24 hours. - Follow CBC and BMP in the AM. 3. Chronic Cough - CXR showed NO active pulmonary disease at ED last night. - CT of Abdomen/Pelvis w/o contrast on 04/05/17 suggest hiatal hernia - Protonix daily. - D-dimer 5801-elevated. - US doppler of b/l Lower Extremity showed no DVT. - CT angiogram of chest today was unremarkable, no PE. - HIV test-negative. - IV azithromycin. - Monitor cough progression. 4. Hypertension - C/w Metoprolol succinate - Vitals Q6 5. Hypercholesterolemia - Will check Lipid panel. 6. DM type 2 - Start regular insulin sliding scale for DM coverage, hold metformin due to CT with contrast. - Monitor serum glucose, Accucheck. - Consult to cardiology, Dr Yost 7. DVT prophylaxis - SCDs, - no heparin due to bleeding of urine source.
--- NOTE | 2017-04-07 10:33 | CT ---
PROCEDURE: CT Abdomen and Pelvis with contrast HISTORY: eval renal mass COMPARISON: None. TECHNIQUE: Contrast dose: 95 mL Visipaque 320 Radiation dose: Total exam DLP = 43.6 mGy-cm. This CT exam was performed using one or more of the following dose reduction techniques: Automated exposure control, adjustment of the mA and/or kV according to patient size, and/or use of iterative reconstruction technique. FINDINGS: LOWER THORAX: Unremarkable. LIVER: Unremarkable. No gross lesion or ductal dilatation. GALLBLADDER AND BILE DUCTS: Minimal dependent cholelithiasis without gallbladder wall thickening or pericholecystic fluid. PANCREAS: Unremarkable. No gross lesion or ductal dilatation. SPLEEN: Unremarkable. ADRENALS: Left adrenal enhancing 2.3 cm mass. Unremarkable right adrenal. KIDNEYS AND URETERS: Re- demonstration of heterogeneously enhancing " "eft renal mass measuring 17.2 x 12.7 x 19.6 cm. Mild prominence of the left renal collecting system. No obvious involvement of the left renal collecting system or ureter. Unremarkable right kidney VASCULATURE: Patent left renal artery and vein. Left-sided varicocele. No aortic aneurysm. BOWEL: Unremarkable. No obstruction. No gross mural thickening. APPENDIX: Normal appendix. PERITONEUM: Small amount of left retroperitoneal simple fluid. No free air. LYMPH NODES: Prominent para-aortic lymph nodes. BLADDER: Unremarkable. REPRODUCTIVE: Unremarkable. BONES: Nonspecific lucent lesion at the right femoral head/neck junction. OTHER FINDINGS: None. IMPRESSION: Re- demonstration of heterogeneously enhancing large left renal mass measuring up to 19.6 cm as described above. Patent left renal artery and vein. Prominence of the left renal collecting system without obvious involvement. Left adrenal mass and prominent para-aortic lymph nodes for which metastatic involvement cannot be excluded. Left-sided varicocele. Nonspecific lucent lesion at the right femoral head/ neck junction.
--- NOTE | 2017-04-07 11:20 | CP.PCM.CON ---
History of Present Illness - History of Present Illness History of Present Illness: this 67 yr male seen yesterday for sudden onset of gross painless hematuria thi9s is first episode which started within the past 24 hours. He denies recent history of trauma denies acute renal colic and is on no anticoagulant therapy. His npast medical history is noted for hypertension and diabetes. Clinically he is febrile, 19,000 WBC BUN/CREAT wnl urine grossly bloody no clots A CT scan performed in ED shows a large 18 cm heterogenous mass extending from the left kidney with suspect hemorrhagic component. On physical eval pt is moderately obese in no distress ar acute pain abdomen not distended he does describe a dull discomfort in his left flank area Current impression gross hematuria with left renal mass Plan 1 Urine Cytology 2 cystoscopy 3.If patient remains hemodynamically stable then I would perform an iv contrast CT in about 1 week to better assess the nature of the renal mass. The patient indicated to me that if any significant intervention is needed that he will elect to go to [facility], and not continue here.He is agreeable to the cysto eval whjich I will schedule Past Patient History - Infectious Disease Hx of Infectious Diseases: None - Past Medical History & Family History Past Medical History?: Yes - Past Social History Smoking Status: Never Smoked - CARDIAC Hx Cardiac Disorders: Yes Hx Hypercholesterolemia: Yes Hx Hypertension: Yes - PULMONARY Hx Respiratory Disorders: No - NEUROLOGICAL Hx Neurological Disorder: No - HEENT Hx HEENT Problems: No - RENAL Hx Chronic Kidney Disease: No - ENDOCRINE/METABOLIC Hx Endocrine Disorders: Yes Hx Diabetes Mellitus Type 2: Yes - HEMATOLOGICAL/ONCOLOGICAL Hx Blood Disorders: No - INTEGUMENTARY Hx Dermatological Problems: No - MUSCULOSKELETAL/RHEUMATOLOGICAL Hx Musculoskeletal Disorders: No Hx Falls: No - GASTROINTESTINAL Hx Gastrointestinal Disorders: No - GENITOURINARY/GYNECOLOGICAL Hx Genitourinary Disorders: No - PSYCHIATRIC Hx Psychophysiologic Disorder: No Hx Substance Use: No - SURGICAL HISTORY Hx Surgeries: Yes Other/Comment: Lipoma resection (back) - ANESTHESIA Hx Anesthesia: Yes Hx Anesthesia Reactions: No Hx Malignant Hyperthermia: No Meds Allergies/Adverse Reactions: Allergies Allergy/AdvReac Type Severity Reaction Status Date / Time No Known Allergies Allergy Verified 04/05/17 17:41 - Medications Medications: Current Medications Acetaminophen (Tylenol 325mg Tab) 650 mg PO Q6 PRN PRN Reason: Fever >100.4 F Ceftriaxone Sodium 1 gm/ (Sodium Chloride) 100 mls @ 100 mls/hr IVPB DAILY [facility] PRN Reason: Protocol Last Admin: 04/07/17 08:46 Dose: 100 mls/hr Azithromycin 500 mg/ Sodium (Chloride) 250 mls @ 250 mls/hr IVPB DAILY [facility] PRN Reason: Protocol Last Admin: 04/07/17 08:46 Dose: 250 mls/hr Insulin Human Regular (Humulin R) 0 units SC ACCU-CHECK [facility] PRN Reason: Protocol Last Admin: 04/07/17 06:53 Dose: Not Given Metoprolol Succinate (Toprol Xl) 50 mg PO DAILY [facility] Last Admin: 04/07/17 08:52 Dose: 50 mg Multivitamins/Minerals (Therapeutic-M Tab) 1 tab PO DAILY [facility] Last Admin: 04/07/17 08:52 Dose: 1 tab Ondansetron HCl (Zofran Inj) 4 mg IVP Q6 PRN PRN Reason: Nausea/Vomiting Last Admin: 04/06/17 12:24 Dose: 4 mg Pantoprazole Sodium (Protonix Ec Tab) 40 mg PO DAILY [facility] Last Admin: 04/07/17 08:52 Dose: 40 mg Temazepam (Restoril) 15 mg PO HS PRN PRN Reason: Insomnia Last Admin: 04/07/17 00:28 Dose: 15 mg Results - Vital Signs Recent Vital Signs: Last Vital Signs Temp 99 F 04/07/17 08:52 Pulse 120 H 04/07/17 08:52 Resp 20 04/07/17 08:52 BP 132/85 04/07/17 08:52 Pulse Ox 96 04/07/17 08:52 - Labs Result Diagrams: 04/07/17 05:00 04/07/17 05:53 Labs: Laboratory Results - last 24 hr 04/06/17 04/06/17 04/06/17 14:29 14:29 15:51 WBC RBC Hgb Hct MCV MCH MCHC RDW Plt Count MPV Neut % (Auto) Lymph % (Auto) [place] % (Auto) Eos % (Auto) Baso % (Auto) Neut # (Auto) Lymph # (Auto) [place] # (Auto) Eos # (Auto) Baso # (Auto) D-Dimer, Quantitative 5801 H Sodium Potassium Chloride Carbon Dioxide Anion Gap BUN Creatinine Est GFR ( Amer) Est GFR (Non-Af Amer) POC Glucose (mg/dL) 193 H Random Glucose Calcium Total Bilirubin AST ALT Alkaline Phosphatase Total Protein Albumin Globulin Albumin/Globulin Ratio HIV 1&2 Antibody Screen Negative 04/06/17 04/07/17 04/07/17 21:46 05:00 05:53 WBC 24.5 H RBC 4.49 Hgb 12.2 Hct 37.8 MCV 84.2 MCH 27.3 MCHC 32.4 L RDW 15.1 H Plt Count 263 MPV 9.0 Neut % (Auto) 83.3 H Lymph % (Auto) 5.9 L [place] % (Auto) 10.5 H Eos % (Auto) 0.1 Baso % (Auto) 0.2 Neut # (Auto) 20.4 H Lymph # (Auto) 1.4 [place] # (Auto) 2.6 H Eos # (Auto) 0.0 Baso # (Auto) 0.0 D-Dimer, Quantitative Sodium 136 Potassium 3.9 Chloride 100 Carbon Dioxide 26 Anion Gap 14 BUN 16 Creatinine 1.4 Est GFR ( Amer) > 60 Est GFR (Non-Af Amer) 51 POC Glucose (mg/dL) 144 H Random Glucose 143 H Calcium 9.0 Total Bilirubin 2.3 H AST 71 H ALT 69 Alkaline Phosphatase 116 Total Protein 7.4 Albumin 3.5 Globulin 3.8 Albumin/Globulin Ratio 0.9 L HIV 1&2 Antibody Screen
[2017-04-07] MEDS: Promethazine/Cod 6.25mg-10mg/5ml Syr UD PO PRN (18:36)
[2017-04-08 05:54] LABS: HEMOGLOBIN 11.7 g/dL (12.0-18.0); MEAN CELL VOLUME 85.1 fl (80.0-94.0); MEAN CORPUSCULAR HEMOGLOBIN 28.1 pg (27.0-31.0); MEAN CORPUSCULAR HGB CONC 33.1 g/dL (33.0-37.0); RBC 4.16 Mil/uL (4.40-5.90); RED CELL DISTRIBUTION WIDTH 14.7 % (11.5-14.5); WHITE BLOOD COUNT 21.7 K/uL (4.8-10.8)
[2017-04-08 06:07] LABS: BLOOD UREA NITROGEN 17 mg/dl (9-20); GFR AFRICAN-AMERICAN > 60; GFR NON-AFRICAN AMERICAN 51
[2017-04-08] MEDS: Insulin Regular 100 units/ml SC SCH ×3 (08:00→16:38)
--- NOTE | 2017-04-08 09:13 | CP.PCM.PN ---
Subjective - Date & Time of Evaluation Date of Evaluation: 04/08/17 Time of Evaluation: 08:00 - Subjective Subjective: NO CHEST PAIN OR SOB Objective - Vital Signs/Intake and Output Vital Signs (last 24 hours): Temp Pulse Resp BP Pulse Ox 98.5 F 112 H 18 133/85 94 L 04/08/17 08:00 04/08/17 08:00 04/08/17 08:00 04/08/17 08:00 04/08/17 08:00 - Medications Medications: Current Medications Acetaminophen (Tylenol 325mg Tab) 650 mg PO Q6 PRN PRN Reason: Fever >100.4 F Ceftriaxone Sodium 1 gm/ (Sodium Chloride) 100 mls @ 100 mls/hr IVPB DAILY [facility] PRN Reason: Protocol Last Admin: 04/07/17 08:46 Dose: 100 mls/hr Azithromycin 500 mg/ Sodium (Chloride) 250 mls @ 250 mls/hr IVPB DAILY [facility] PRN Reason: Protocol Last Admin: 04/07/17 08:46 Dose: 250 mls/hr Insulin Human Regular (Humulin R) 0 units SC ACCU-CHECK [facility] PRN Reason: Protocol Last Admin: 04/07/17 23:00 Dose: Not Given Metoprolol Succinate (Toprol Xl) 50 mg PO DAILY [facility] Last Admin: 04/07/17 08:52 Dose: 50 mg Multivitamins/Minerals (Therapeutic-M Tab) 1 tab PO DAILY [facility] Last Admin: 04/07/17 08:52 Dose: 1 tab Ondansetron HCl (Zofran Inj) 4 mg IVP Q6 PRN PRN Reason: Nausea/Vomiting Last Admin: 04/06/17 12:24 Dose: 4 mg Pantoprazole Sodium (Protonix Ec Tab) 40 mg PO DAILY [facility] Last Admin: 04/07/17 08:52 Dose: 40 mg Promethazine HCl/Codeine (Phenergan/Codeine Oral Syrup) 5 ml PO Q6 PRN PRN Reason: Cough Last Admin: 04/07/17 18:36 Dose: 5 ml Temazepam (Restoril) 15 mg PO HS PRN PRN Reason: Insomnia Last Admin: 04/07/17 00:28 Dose: 15 mg - Labs Labs: 04/08/17 04:25 04/08/17 04:25 PT 11.5 Seconds (9.8-13.1) 04/05/17 18:26 INR 1.0 (0.9-1.2) 04/05/17 18:26 APTT 30.5 Seconds (25.6-37.1) 04/05/17 18:26 - Respiratory Exam Respiratory Exam: Clear to Ausculation Bilateral - Cardiovascular Exam Cardiovascular Exam: REGULAR RHYTHM, +S1, +S2 - Additional Findings Additional findings: UROLOGY CONSULT REVIEWED Assessment and Plan - Assessment and Plan (Free Text) Assessment: LEFT RENAL MASS AND HEMATURIA HYPERTENSION Plan: FOR CYSTOSCOPY TODAY
[2017-04-08] MEDS: Pantoprazole 40 mg EC Tab PO SCH (09:24)
[2017-04-08] MEDS: Multivitamin With Minerals Tab PO SCH (09:24)
[2017-04-08] MEDS: Azithromycin 500 MG in Sodium Chloride 0.9% 250 ML IVPB SCH (09:29)
--- NOTE | 2017-04-08 10:23 | CP.PCM.PN ---
Subjective - Date & Time of Evaluation Date of Evaluation: 04/08/17 Time of Evaluation: 09:10 - Subjective Subjective: 67 y/o M evaluated and examined by bedside. - Pt reports feeling well, no hematuria noticed since 2 nights ago. Left sided flank and LLQ discomfort but no pain, improving. - Pt still c/o of persistent mild cough, codeine given yesterday which help a lot. Pt requesting cough medication again. - Pt aware that he will go for cytoscopy later today. - Pt afebrile, tolerating PO with acute events overnight. - Pt denies headache, chills, CP, SOB, abdominal pain, dysuria or rash. Objective - Vital Signs/Intake and Output Vital Signs (last 24 hours): Temp Pulse Resp BP Pulse Ox 98.5 F 112 H 18 133/85 94 L 04/08/17 08:00 04/08/17 08:00 04/08/17 08:00 04/08/17 08:00 04/08/17 08:00 - Medications Medications: Current Medications Acetaminophen (Tylenol 325mg Tab) 650 mg PO Q6 PRN PRN Reason: Fever >100.4 F Ceftriaxone Sodium 1 gm/ (Sodium Chloride) 100 mls @ 100 mls/hr IVPB DAILY [facility] PRN Reason: Protocol Last Admin: 04/08/17 09:29 Dose: 100 mls/hr Azithromycin 500 mg/ Sodium (Chloride) 250 mls @ 250 mls/hr IVPB DAILY [facility] PRN Reason: Protocol Last Admin: 04/08/17 09:29 Dose: 250 mls/hr Insulin Human Regular (Humulin R) 0 units SC ACCU-CHECK [facility] PRN Reason: Protocol Last Admin: 04/07/17 23:00 Dose: Not Given Metoprolol Succinate (Toprol Xl) 50 mg PO DAILY [facility] Last Admin: 04/07/17 08:52 Dose: 50 mg Multivitamins/Minerals (Therapeutic-M Tab) 1 tab PO DAILY [facility] Last Admin: 04/08/17 09:24 Dose: Not Given Ondansetron HCl (Zofran Inj) 4 mg IVP Q6 PRN PRN Reason: Nausea/Vomiting Last Admin: 04/06/17 12:24 Dose: 4 mg Pantoprazole Sodium (Protonix Ec Tab) 40 mg PO DAILY [facility] Last Admin: 04/08/17 09:24 Dose: Not Given Promethazine HCl/Codeine (Phenergan/Codeine Oral Syrup) 5 ml PO Q6 PRN PRN Reason: Cough Last Admin: 04/07/17 18:36 Dose: 5 ml Temazepam (Restoril) 15 mg PO HS PRN PRN Reason: Insomnia Last Admin: 04/07/17 00:28 Dose: 15 mg - Labs Labs: 04/08/17 04:25 04/08/17 04:25 PT 11.5 Seconds (9.8-13.1) 04/05/17 18:26 INR 1.0 (0.9-1.2) 04/05/17 18:26 APTT 30.5 Seconds (25.6-37.1) 04/05/17 18:26 - Constitutional Appears: Well, No Acute Distress - Head Exam Head Exam: ATRAUMATIC, NORMAL INSPECTION - Eye Exam Eye Exam: EOMI, Normal appearance - Neck Exam Neck Exam: Full ROM - Respiratory Exam Respiratory Exam: Clear to Ausculation Bilateral, NORMAL BREATHING PATTERN - Cardiovascular Exam Cardiovascular Exam: REGULAR RHYTHM, +S1, +S2 - GI/Abdominal Exam GI & Abdominal Exam: Soft, Normal Bowel Sounds. absent: Tenderness - Extremities Exam Extremities Exam: Full ROM Assessment and Plan - Assessment and Plan (Free Text) Assessment: 67 y/o M with a PMHx of HTN, HLD and DM2 admitted for evaluation of L renal mass. --On 04/05/17, CT scan abdomen and pelvis reveals a large 18 x 9.6 cm exophytic heterogeneous partially hyperdense lesion is seen arising from the left kidney. Plan 1. Left Renal Mass, mostprobable Renal Cell Carcinoma - Renal cell carcinoma until proven otherwise, in need for L nephrectomy, pt has indicated that he desires to have any surgical procedure at [facility]. - Urology, Dr Pabon, on board. - Yesterday, CT Abdomen and Pelvis with contrast showed heterogeneously enhancing large left renal mass measuring 17.2x12.7x19.6cm, patent L renal artery and vein, L adrenal mass and L para-aortic lyhmphadenopathy, L sided varicocele. - UCx showed NO growth-final report and Blood Cx showed NO growth in 48 hours. - Cytoscopy today, as per Dr Pabon. - Considering stopping Ceftriaxone 1gr daily, as NO focus of infection found. - No need for L renal mass biopsy. - F/U Urine cytology. 2. Fever and Leukocytosis. - Most probably secondary to malignancy, No obvious source of infection. - 101.6 degF at ER, 3 days ago. - Considering stopping Ceftriaxone 1gr daily, as NO focus of infection found. - Acetaminophen PRN. - UCx showed NO growth-final report and Blood Cx showed NO growth in 48 hours. - Follow CBC and BMP in the AM. 3. Chronic Cough - CXR showed NO active pulmonary disease at ED last night. - CT of Abdomen/Pelvis w/o contrast on 04/05/17 suggest hiatal hernia - Protonix daily. - D-dimer 5801-elevated. Probably secondary to malignancy. - US doppler of b/l Lower Extremity showed no DVT. - CT angiogram of chest today was unremarkable, no PE. - HIV test-negative. - IV azithromycin. - Prometazine/Codeine PRN. 4. Hypertension - C/w Metoprolol succinate - Vitals Q6 5. Hypercholesterolemia - Will check Lipid panel. 6. DM type 2 - Insulin for DM coverage, hold metformin due to CT with contrast. - Monitor serum glucose, Accucheck. 7. DVT prophylaxis - SCDs, - no heparin due to bleeding of urine source.
[2017-04-08] MEDS: Metoprolol Succinate 50 mg XL Tab PO SCH (10:37)
[2017-04-08] MEDS: Promethazine/Cod 6.25mg-10mg/5ml Syr UD PO PRN (10:40)
[2017-04-08 16:05] VITALS: BP 122/82; PULSE 111; RESP 17; TEMP 98.9; O2SAT 94
--- NOTE | 2017-04-08 16:31 | CP.PCM.DIS ---
Provider - Provider Date of Admission: 04/05/17 20:16 Attending physician: Sathish Carrion DO Primary care physician: Dr. Sherman Consults: Urology: Dr Pabon. Time Spent in preparation of Discharge (in minutes): 40 Diagnosis - Discharge Diagnosis (1) Renal mass, left Status: Acute Comment: -Pt will follow up with urologist, Cornelius Lou on tuesday. - Renal Cell carcinoma until proven otherwise. (2) Hematuria Status: Acute Comment: -Secondary to L renal mass. -Pt will follow up with urologist, Cornelius Lou on tuesday. Hospital Course - Lab Results Lab Results: Micro Results 04/05/17 18:15 Blood Blood Culture - Preliminary NO GROWTH AFTER 48 HOURS 04/05/17 18:00 Blood Blood Culture - Preliminary NO GROWTH AFTER 48 HOURS 04/05/17 18:26 Urine,Random Urine Culture - Final No Growth (<1,000 CFU/ML) Most Recent Lab Values WBC 21.7 K/uL (4.8-10.8) H 04/08/17 04:25 RBC 4.16 Mil/uL (4.40-5.90) L 04/08/17 04:25 Hgb 11.7 g/dL (12.0-18.0) L 04/08/17 04:25 Hct 35.4 % (35.0-51.0) 04/08/17 04:25 MCV 85.1 fl (80.0-94.0) 04/08/17 04:25 MCH 28.1 pg (27.0-31.0) 04/08/17 04:25 MCHC 33.1 g/dL (33.0-37.0) 04/08/17 04:25 RDW 14.7 % (11.5-14.5) H 04/08/17 04:25 Plt Count 266 K/uL (130-400) 04/08/17 04:25 MPV 9.0 fl (7.2-11.7) 04/07/17 05:00 Neut % (Auto) 83.3 % (50.0-75.0) H 04/07/17 05:00 Lymph % (Auto) 5.9 % (20.0-40.0) L 04/07/17 05:00 [place] % (Auto) 10.5 % (0.0-10.0) H 04/07/17 05:00 Eos % (Auto) 0.1 % (0.0-4.0) 04/07/17 05:00 Baso % (Auto) 0.2 % (0.0-2.0) 04/07/17 05:00 Neut # (Auto) 20.4 K/uL (1.8-7.0) H 04/07/17 05:00 Lymph # (Auto) 1.4 K/uL (1.0-4.3) 04/07/17 05:00 [place] # (Auto) 2.6 K/uL (0.0-0.8) H 04/07/17 05:00 Eos # (Auto) 0.0 K/uL (0.0-0.7) 04/07/17 05:00 Baso # (Auto) 0.0 K/uL (0.0-0.2) 04/07/17 05:00 Neutrophils % (Manual) 75 % (42-75) 04/05/17 18:26 Band Neutrophils % 3 % (0-2) H 04/05/17 18:26 Lymphocytes % (Manual) 12 % (20-50) L 04/05/17 18:26 Monocytes % (Manual) 8 % (0-10) 04/05/17 18:26 Eosinophils % (Manual) 1 % (0-7) 04/05/17 18:26 Basophils % (Manual) 1 % (0-2) 04/05/17 18:26 Platelet Estimate Normal (NORMAL) 04/05/17 18:26 Hypochromasia (manual) Slight 04/05/17 18:26 PT 11.5 Seconds (9.8-13.1) 04/05/17 18:26 INR 1.0 (0.9-1.2) 04/05/17 18:26 APTT 30.5 Seconds (25.6-37.1) 04/05/17 18:26 D-Dimer, Quantitative 5801 ng/mlDDU (0-230) H 04/06/17 14:29 pO2 78 mm/Hg (30-55) H 04/05/17 21:00 VBG pH 7.53 (7.32-7.43) H 04/05/17 21:00 VBG pCO2 30 mmHg (40-60) L 04/05/17 21:00 VBG HCO3 27.3 mmol/L 04/05/17 21:00 VBG Total CO2 26.0 mmol/L (22-28) 04/05/17 21:00 VBG O2 Sat (Calc) 100.1 % (40-65) H 04/05/17 21:00 VBG Base Excess 3.1 mmol/L (0.0-2.0) H 04/05/17 21:00 VBG Potassium 4.1 mmol/L (3.6-5.2) 04/05/17 21:00 Sodium 135.0 mmol/L (132-148) 04/05/17 21:00 Chloride 103.0 mmol/L (98-107) 04/05/17 21:00 Glucose 174 mg/dL (75-110) H 04/05/17 21:00 Lactate 1.6 mmol/L (0.7-2.1) 04/05/17 21:00 FiO2 21.0 % 04/05/17 21:00 Sodium 136 mmol/l (132-148) 04/08/17 04:25 Potassium 3.9 MMOL/L (3.6-5.0) 04/08/17 04:25 Chloride 99 mmol/L (98-107) 04/08/17 04:25 Carbon Dioxide 29 mmol/L (22-30) 04/08/17 04:25 Anion Gap 12 (10-20) 04/08/17 04:25 BUN 17 mg/dl (9-20) 04/08/17 04:25 Creatinine 1.4 mg/dl (0.8-1.5) 04/08/17 04:25 Est GFR ( Amer) > 60 04/08/17 04:25 Est GFR (Non-Af Amer) 51 04/08/17 04:25 POC Glucose (mg/dL) 124 mg/dL (65-110) H 04/08/17 15:49 Random Glucose 144 mg/dL (75-110) H 04/08/17 04:25 Calcium 9.0 mg/dL (8.4-10.2) 04/08/17 04:25 Phosphorus 3.3 mg/dl (2.5-4.5) 04/05/17 18:26 Magnesium 1.9 MG/DL (1.6-2.3) 04/05/17 18:26 Total Bilirubin 2.3 mg/dl (0.2-1.3) H 04/07/17 05:53 AST 71 U/L (17-59) H 04/07/17 05:53 ALT 69 U/L (21-72) 04/07/17 05:53 Alkaline Phosphatase 116 U/L (38-126) 04/07/17 05:53 Total Protein 7.4 G/DL (6.3-8.2) 04/07/17 05:53 Albumin 3.5 g/dL (3.5-5.0) 04/07/17 05:53 Globulin 3.8 gm/dL (2.2-3.9) 04/07/17 05:53 Albumin/Globulin Ratio 0.9 (1.0-2.1) L 04/07/17 05:53 Lipase 86 U/L (23-300) 04/05/17 18:26 Venous Blood Potassium 4.1 mmol/L (3.6-5.2) 04/05/17 21:00 Urine Color Yellow (YELLOW) 04/05/17 18:26 Urine Clarity Cloudy (Clear) 04/05/17 18:26 Urine pH 6.0 (5.0-8.0) 04/05/17 18:26 Ur Specific [place] 1.020 (1.003-1.030) 04/05/17 18:26 Urine Protein 100 mg/dL (NEGATIVE) 04/05/17 18:26 Urine Glucose (UA) Neg mg/dL (Normal) 04/05/17 18:26 Urine Ketones Negative mg/dL (NEGATIVE) 04/05/17 18:26 Urine Blood Large (NEGATIVE) 04/05/17 18:26 Urine Nitrate Negative (NEGATIVE) 04/05/17 18:26 Urine Bilirubin Negative (NEGATIVE) 04/05/17 18:26 Urine Urobilinogen 0.2-1.0 mg/dL (0.2-1.0) 04/05/17 18:26 Ur Leukocyte Esterase Neg Roberta/uL (Negative) 04/05/17 18:26 Urine RBC (Auto) 47 /hpf (0-3) H 04/05/17 18:26 Urine Microscopic WBC 3 /hpf (0-5) 04/05/17 18:26 Urine Bacteria Rare (<OCC) 04/05/17 18:26 HIV 1&2 Antibody Screen Negative (NEGATIVE) 04/06/17 14:29 Influenza Typ A,B (EIA) Negative for flu a/b (NEGATIVE) 04/05/17 18:49 Blood Type O POSITIVE 04/05/17 18:00 Antibody Screen Negative 04/05/17 18:00 BBK History Checked No verified bt 04/05/17 18:00 - Hospital Course Hospital Course: 67 y/o M with a PMhx of HTN, DM2 and HLD was admitted for evaluation of painless hematuria. Urology was consulted. - CT of Abdomen/pelvis with contrast showed heterogeneously enhancing large left renal mass measuring 17.2x12.7x19.6cm, patent L renal artery and vein, L adrenal mass and L para-aortic lyhmphadenopathy, L sided varicocele. - Duplex US, CTA of Chest were unremarkable. They were ordered due to Hx of chronic cough and to r/o possible PE due to malignancy. - CBC showed leukocytosis, possibly secondary to malignancy. HIV and Influenza were negative. - Cytoscopy was cancelled by Dr Pabon at 2pm today. Pt stable, tolerating PO will be discharged with instruction to f/u with Urologist at [facility]. Pending urine cytology results. - Date & Time of H&P Date of H&P: 04/05/17 Time of H&P: 22:10 Discharge Exam - Head Exam Head Exam: ATRAUMATIC, NORMAL INSPECTION - Eye Exam Eye Exam: EOMI, Normal appearance - ENT Exam ENT Exam: Mucous Membranes Dry, Mucous Membranes Moist - Neck Exam Neck exam: Full Rom, Normal Inspection - Respiratory Exam Respiratory Exam: Clear to PA & Lateral, NORMAL BREATHING PATTERN - Cardiovascular Exam Cardiovascular Exam: +S1, +S2 - GI/Abdominal Exam GI & Abdominal Exam: Normal Bowel Sounds, Soft. absent: Tenderness - Neurological Exam Neurological exam: Alert, Oriented x3 Discharge Plan - Follow Up Plan Condition: GOOD Disposition: HOME/ ROUTINE Additional Instructions: - Please F/U with Urologist at [facility] on tuesday as planned. - Return to ER if fever, intolerable pain, aggravation of hematuria. Referrals: Cornelius Bae MD [Medical Doctor] -
--- NOTE | 2017-04-08 21:20 | CP.PCM.PN ---
Subjective - Date & Time of Evaluation Date of Evaluation: 04/08/17 Time of Evaluation: 13:30 - Subjective Subjective: pt seen today and updated him on his current status. I will cancell cysto as he has an appt at [facility] next tuesday. he has no current gross [id number] and has no acute flank pain. pt can be released from gu point of view. if ok with attending Objective - Vital Signs/Intake and Output Vital Signs (last 24 hours): Temp Pulse Resp BP Pulse Ox 98.9 F 111 H 17 122/82 94 L 04/08/17 16:05 04/08/17 16:05 04/08/17 16:05 04/08/17 16:05 04/08/17 16:05 - Labs Labs: 04/08/17 04:25 04/08/17 04:25 PT 11.5 Seconds (9.8-13.1) 04/05/17 18:26 INR 1.0 (0.9-1.2) 04/05/17 18:26 APTT 30.5 Seconds (25.6-37.1) 04/05/17 18:26
== END 2017-04-08 18:41 | disposition home or self-care (01) | DRG 688 ==
LOC: H.ER 17:27 → H.ERHOLD 20:16 → H.TEL 21:55
PROVIDERS: ADMIT Internal Medicine; ATTEND Internal Medicine
PROC: 3E0234Z Introduction of Serum, Toxoid and Vaccine into Muscle, Percutaneous Approach (ICD-10-PCS; principal; 2017-04-06)
DX: C64.2 Malignant neoplasm of left kidney, except renal pelvis (principal); R31.0 Gross hematuria; D72.828 Other elevated white blood cell count; R00.0 Tachycardia, unspecified; E11.9 Type 2 diabetes mellitus without complications; E66.9 Obesity, unspecified; E78.00 Pure hypercholesterolemia, unspecified; E78.5 Hyperlipidemia, unspecified; R05 Cough; I10 Essential (primary) hypertension; Z23 Encounter for immunization; Z87.442 Personal history of urinary calculi

== ENCOUNTER 2018-04-21 18:04 | Emergency (ER) | payer MEDICARE, OTHER ==
[2018-04-21 18:12] VITALS: BP 135/81; PULSE 102; RESP 18; TEMP 98; O2SAT 96
--- NOTE | 2018-04-21 19:32 | ED PDOC ---
Upper Extremity Pain/Injury Time Seen by Provider: 04/21/18 18:42 Chief Complaint (Nursing): Upper Extremity Problem/Injury Additional Complaint(s): Mynor Gamboa is a 68 year old male with a past medical history of left nephrectomy in 2017 for a benign mass, HTN, HLD and diabetes, who presents to the emergency department complaining of a non healing right 4th digit blister. Patient developed a lesion on the right 4th digit, x1 month ago and states that since that time, it appears to be on skin on hands and bleeds occasionally. He denies any trauma, fever chills or hand pain. Patient has been taking Tylenol or Ibuprofen intermittently for pain discomfort. PMD: Declan Sherman Past Medical History Reviewed: Historical Data, Nursing Documentation, Vital Signs Vital Signs: Last Vital Signs Temp 98.0 F 04/21/18 18:11 Pulse 102 H 04/21/18 18:11 Resp 18 04/21/18 18:11 BP 135/81 04/21/18 18:11 Pulse Ox 96 04/21/18 18:11 - Medical History PMH: Diabetes, HTN, Hypercholesterolemia Denies: Chronic Kidney Disease - Surgical History Other surgeries: nephrectomy - Family History Family History: States: Diabetes, Hypertension - Immunization History Hx Influenza Vaccination: Yes - Home Medications Home Medications: Ambulatory Orders Medication Instructions Recorded Metoprolol Succinate XL [Toprol XL] 50 mg PO DAILY 04/05/17 Multivit-Min/FA/Vit K/Lycopene 1 tab PO DAILY 04/05/17 [One-A-Day Men's 50 Plus Tablet] Sitagliptin Phos/Metformin HCl 1 tab PO BID 04/05/17 [Janumet 50-1,000 mg Tablet] Multimineral/Multivitamin 1 tab PO DAILY tab 04/08/17 [Therapeutic-M Tab] Promethazine/Codeine 10 ml PO Q6 #100 ml 04/08/17 [Phenergan/Codeine Oral Syrup] - Allergies Allergies/Adverse Reactions: Allergies Allergy/AdvReac Type Severity Reaction Status Date / Time No Known Allergies Allergy Verified 04/21/18 18:10 Review of Systems ROS Statement: Except As Marked, All Systems Reviewed And Found Negative Constitutional: Negative for: Fever, Chills Musculoskeletal: Negative for: Hand Pain (blister on 4th digit) Physical Exam - Reviewed Nursing Documentation Reviewed: Yes Vital Signs Reviewed: Yes - Physical Exam Appears: Positive for: Non-toxic, No Acute Distress Pulses-Radial (L): 2+ Pulses-Radial (R): 2+ Extremity: Positive for: Capillary Refill (less than 2 seconds), Other (Palmor aspect of right hand 4th digit: 1.5 cm pedunculated mass with mild bleeding; (-) erythema, edema). Negative for: Swelling - ECG O2 Sat by Pulse Oximetry: 96 (RA) Pulse Ox Interpretation: Normal Medical Decision Making Medical Decision Making: Time: 1935 Impression: Pyogenic granuloma Plan: --Likely pyogenic granuloma after discussion with Dr. Carlisle, who has reviewed photo of patient's blister. Patient is to follow up with Dr. Carlisle for outpatient treatment with silver nitrate. Scribe Attestation: Documented by Jamaal Dan, acting as a scribe for Karly Parsons PA-C. Provider Scribe Attestation: All medical record entries made by the Scribe were at my direction and personally dictated by me. I have reviewed the chart and agree that the record accurately reflects my personal performance of the history, physical exam, medical decision making, and the department course for this patient. I have also personally directed, reviewed, and agree with the discharge instructions and disposition. Disposition - Clinical Impression Clinical Impression: Pyogenic granuloma of skin - Disposition Referrals: Apryl Carlisle MD [Medical Doctor] - Disposition Time: 19:40 Condition: STABLE Additional Instructions: F/u with Dr. Carlisle (plastic surgery) within the next week for outpatient treatment. You can leave open to the air unless using your hand frequently and then change dressing daily at least and keep clean using soap and water. Forms: [employer] (Belgian) Print Language: ROMANIAN
== END 2018-04-21 19:44 | disposition home or self-care (01) ==
LOC: H.ER 18:04
DX: L98.0 Pyogenic granuloma (principal); E11.9 Type 2 diabetes mellitus without complications; E78.00 Pure hypercholesterolemia, unspecified; I10 Essential (primary) hypertension; Z79.899 Other long term (current) drug therapy

== ENCOUNTER 2018-04-30 09:30 | Emergency (ER) | payer MEDICARE, OTHER ==
--- NOTE | 2018-04-30 10:33 | ED PDOC ---
Upper Extremity Pain/Injury Time Seen by Provider: 04/30/18 10:26 Chief Complaint (Nursing): Finger,Hand,&Wrist Chief Complaint (Provider): bleeding wound History Per: Patient (68 y/o male here with pyogena granuloma right ring finger ongoing. Unable to Dr. Traylor for scheduled plastics appt this Tuesday due to inclement weather. NOtes bleeding today when he placed different bandage.) Past Medical History Reviewed: Historical Data, Nursing Documentation, Vital Signs Vital Signs: Last Vital Signs Temp 98.4 F 04/30/18 09:32 Pulse 88 04/30/18 09:32 Resp 18 04/30/18 09:32 BP 179/110 H 04/30/18 09:32 Pulse Ox 99 04/30/18 09:32 - Medical History PMH: Diabetes, HTN, Hypercholesterolemia Denies: Chronic Kidney Disease - Family History Family History: States: Diabetes, Hypertension - Immunization History Hx Influenza Vaccination: Yes - Home Medications Home Medications: Ambulatory Orders Medication Instructions Recorded Metoprolol Succinate XL [Toprol XL] 50 mg PO DAILY 04/05/17 Multivit-Min/FA/Vit K/Lycopene 1 tab PO DAILY 04/05/17 [One-A-Day Men's 50 Plus Tablet] Sitagliptin Phos/Metformin HCl 1 tab PO BID 04/05/17 [Janumet 50-1,000 mg Tablet] Multimineral/Multivitamin 1 tab PO DAILY tab 04/08/17 [Therapeutic-M Tab] Promethazine/Codeine 10 ml PO Q6 #100 ml 04/08/17 [Phenergan/Codeine Oral Syrup] Bacitracin Ointment [Bacitracin] 0.5 gm TOP BID #30 gm 04/30/18 - Allergies Allergies/Adverse Reactions: Allergies Allergy/AdvReac Type Severity Reaction Status Date / Time No Known Allergies Allergy Verified 04/21/18 18:10 Review of Systems ROS Statement: Except As Marked, All Systems Reviewed And Found Negative Physical Exam - Reviewed Nursing Documentation Reviewed: Yes Vital Signs Reviewed: Yes - Physical Exam Appears: Positive for: Well, Non-toxic, No Acute Distress Head Exam: Positive for: ATRAUMATIC, NORMAL INSPECTION, NORMOCEPHALIC Skin: Positive for: Normal Color, Warm, DRY Eye Exam: Positive for: EOMI, Normal appearance, PERRL ENT: Positive for: Normal ENT Inspection Neck: Positive for: Normal, Painless ROM Cardiovascular/Chest: Positive for: Regular Rate, Rhythm Respiratory: Positive for: CNT, Normal Breath Sounds Gastrointestinal/Abdominal: Positive for: Normal Exam, Soft Back: Positive for: Normal Inspection Extremity: Positive for: Other (pyogena granuloma volar surface of fourth digit with small amount of bleeding,easily controlled.). Negative for: Normal ROM Neurologic/Psych: Positive for: Alert, Oriented - ECG O2 Sat by Pulse Oximetry: 99 - Progress ED Course And Treament: Attempt made to contac to Dr. Traylor to discuss. Bleeding controlled in ED. Patient advised to call office tomorrow to make appt for f/u Gelfoam applied to bleeding region/pressure dressing. Disposition - Clinical Impression Clinical Impression: Pyogenic granuloma of skin - Patient ED Disposition Is Patient to be Admitted: No - Disposition Referrals: Minh Traylor MD [Staff Provider] - Disposition: Routine/Home Disposition Time: 11:17 Condition: FAIR Prescriptions: Bacitracin Ointment [Bacitracin] 0.5 gm TOP BID #30 gm Instructions: Wound Care (DC)
[2018-04-30] MEDS ORDERED: Absorbable Gelatin Sponge Size 12-7 ONE (11:38)
[2018-04-30 12:06] VITALS: BP 145/92; PULSE 78; RESP 20; TEMP 97.5
[2018-04-30 14:59] VITALS: O2SAT 99
== END 2018-04-30 12:06 | disposition home or self-care (01) ==
LOC: H.ER 09:30
DX: L92.8 Other granulomatous disorders of the skin and subcutaneous tissue (principal); L98.0 Pyogenic granuloma; E11.9 Type 2 diabetes mellitus without complications; I10 Essential (primary) hypertension; Z79.899 Other long term (current) drug therapy; E78.00 Pure hypercholesterolemia, unspecified